=== PATIENT | female | born 1945 | race Caucasian/White ===

== ENCOUNTER → 2017-01-08 | Outpatient (CLI) | payer MEDICARE, BC ==
[2017-01-08 11:09] LABS: Aty Lym Flag Marked; CH 31.9; HCT 44.9 % (34.0-46.0); HDW 2.58; HGB 14.7 gm/dL (11.4-16.0); MCH 31.8 pg (25.0-35.0); MCHC 32.7 g/dL (31.0-37.0); MCV 97.2 fL (80.0-100.0); Mean Platelet Volume 7.2; RBC 4.62 m/uL (3.80-5.40); RDW 14.3 % (11.5-15.5); WBC (Perox) 149.5
[2017-01-08 11:15] LABS: WBC 148.8 k/uL (3.8-10.6)
[2017-01-08 14:30] LABS: Add Differential Manual Differential
[2017-01-08 14:32] LABS: Band Neutrophils % 0.5 %; Manual Review Performed; Nucleated Red Blood Cells 0 /100 WBC (0-0); Total Cells Counted 200
== END ==
LOC: LABWHC1 10:00
PROVIDERS: ATTEND Internal Medicine Hematology & Oncology
DX: C91.10 Chronic lymphocytic leukemia of B-cell type not having achieved remission (principal)
CPT/HCPCS: 36415; 85025

== ENCOUNTER → 2017-07-17 | Outpatient (CLI) | payer MEDICARE, BC ==
[2017-07-17 10:36] LABS: Aty Lym Flag Marked; CH 32.1; HCT 46.4 % (34.0-46.0); HDW 2.71; HGB 15.8 gm/dL (11.4-16.0); MCH 32.4 pg (25.0-35.0); MCV 95.4 fL (80.0-100.0); Mean Platelet Volume 7.8; RBC 4.87 m/uL (3.80-5.40); RDW 15.2 % (11.5-15.5)
[2017-07-17 11:29] LABS: WBC 147.6 k/uL (3.8-10.6)
[2017-07-17 13:02] LABS: Add Differential Manual Differential
[2017-07-17 13:04] LABS: Band Neutrophils % 1 %; Manual Review Performed; Nucleated Red Blood Cells 0 /100 WBC (0-0); Total Cells Counted 100
== END | disposition home or self-care (01) ==
LOC: LABWHC1 09:45
PROVIDERS: ATTEND Internal Medicine Hematology & Oncology
DX: C91.10 Chronic lymphocytic leukemia of B-cell type not having achieved remission (principal)
CPT/HCPCS: 36415; 85025

== ENCOUNTER → 2018-07-16 | Outpatient (CLI) | payer MEDICARE, BC ==
[2018-07-16 10:57] LABS: HCT 47.8 % (34.0-46.0); HGB 14.9 gm/dL (11.4-16.0); MCHC 31.3 g/dL (31.0-37.0); MCV 92.6 fL (80.0-100.0); Mean Platelet Volume 6.8; Platelet Count 241 k/uL (150-450); RBC 5.16 m/uL (3.80-5.40); RDW 15.3 % (11.5-15.5)
[2018-07-16 12:49] LABS: Lymphocytes # (M) 126.72 k/uL (1.0-4.8); Neutrophils % (M) 7 %
[2018-07-16 12:50] LABS: Band Neutrophils % 1 %; Metamyelocytes # (M) 1.44 k/uL (0); Metamyelocytes % 1 %; Monocytes # (M) 5.76 k/uL (0-1.0); Nucleated Red Blood Cells 0 /100 WBC (0-0); Total Cells Counted 200
== END | disposition home or self-care (01) ==
LOC: LABWHC1 09:58
PROVIDERS: ATTEND Internal Medicine Hematology & Oncology
DX: C91.10 Chronic lymphocytic leukemia of B-cell type not having achieved remission (principal)
CPT/HCPCS: 36415; 85025

== ENCOUNTER → 2018-09-16 | Outpatient (CLI) | payer MEDICARE, BC ==
--- NOTE | 2018-09-22 09:42 | MM ---
Reason for exam: screening (asymptomatic). Last mammogram was performed 1 year and 1 month ago. History: Patient is postmenopausal, has history of other cancer at age 68, and is nulliparous. Took hormonal contraceptives for 5 years beginning at age 22. Physical Findings: A clinical breast exam by your physician is recommended on an annual basis and results should be correlated with mammographic findings. MG 3D Screening Mammo W/Cad Bilateral CC and MLO view(s) were taken. Prior study comparison: August 28, 2017, bilateral MG 3d screening mammo w/cad. August 13, 2016, bilateral MG 3d screening mammo w/cad. The breast tissue is extremely dense which could obscure a lesion on mammography. Finding: There are intermediate concern, suspicious coarse heterogeneous, grouped/clustered calcifications in the posterior position of the left breast on MLO view. New finding since August 28, 2017 and August 13, 2016. ASSESSMENT: Incomplete: need additional imaging evaluation, BI-RAD 0 RECOMMENDATION: Special view mammogram of the left breast. [facility] will attempt to contact patient to return for supplemental views.
== END | disposition home or self-care (01) ==
LOC: RADMAMWWP 10:48
PROVIDERS: ATTEND Internal Medicine
DX: Z12.31 Encounter for screening mammogram for malignant neoplasm of breast (principal)
CPT/HCPCS: 77063; 77067

== ENCOUNTER → 2018-10-08 | Outpatient (CLI) | payer MEDICARE, BC ==
--- NOTE | 2018-10-08 11:35 | MM ---
Reason for exam: additional evaluation requested from abnormal screening. Last mammogram was performed 1 month ago. History: Patient is postmenopausal, has history of other cancer at age 68, and is nulliparous. Took hormonal contraceptives for 5 years beginning at age 22. Physical Findings: Nurse did not find any significant physical abnormalities on exam. MG 3D Work Up W/Cad LT LM, CC with magnification, and LM with magnification view(s) were taken of the left breast. Prior study comparison: September 16, 2018, bilateral MG 3d screening mammo w/cad. August 28, 2017, bilateral MG 3d screening mammo w/cad. Finding: There are four punctate, grouped/clustered calcifications in the upper inner quadrant, posterior position of the left breast adjacent to benign coarse calcifications. These results were verbally communicated with the patient and result sheet given to the patient on 10/08/18. ASSESSMENT: Probably benign, BI-RAD 3 RECOMMENDATION: Follow-up diagnostic mammogram of the left breast in 6 months. (include maginification CC and MLO views)
== END | disposition home or self-care (01) ==
LOC: RADMAMWWP 08:49
PROVIDERS: ATTEND Internal Medicine
DX: R92.8 Other abnormal and inconclusive findings on diagnostic imaging of breast (principal)
CPT/HCPCS: 77065; G0279; 77061

== ENCOUNTER → 2019-01-14 | Outpatient (CLI) | payer MEDICARE, BC ==
[2019-01-14 11:21] LABS: HCT 48.1 % (34.0-46.0); HGB 15.2 gm/dL (11.4-16.0); MCH 30.2 pg (25.0-35.0); MCHC 31.6 g/dL (31.0-37.0); MCV 95.7 fL (80.0-100.0); Mean Platelet Volume 6.5; Platelet Count 201 k/uL (150-450); RBC 5.03 m/uL (3.80-5.40); RDW 14.9 % (11.5-15.5)
[2019-01-14 11:26] LABS: WBC 120.1 k/uL (3.8-10.6)
[2019-01-14 12:01] LABS: Lymphocytes # (M) 110.49 k/uL (1.0-4.8); Neutrophils # (M) 8.41 k/uL (1.3-7.7); Neutrophils % (M) 7 %; Nucleated Red Blood Cells 0 /100 WBC (0-0); Total Cells Counted 200
== END | disposition home or self-care (01) ==
LOC: LABWHC1 10:42
PROVIDERS: ATTEND Internal Medicine Hematology & Oncology
DX: C91.10 Chronic lymphocytic leukemia of B-cell type not having achieved remission (principal)
CPT/HCPCS: 36415; 85025

== ENCOUNTER → 2019-04-06 | Outpatient (CLI) | payer MEDICARE, BC ==
--- NOTE | 2019-04-06 11:52 | MM ---
Reason for exam: follow-up at short interval from prior study. Last mammogram was performed 6 months ago. History: Patient is postmenopausal, has history of other cancer at age 68, and is nulliparous. Took hormonal contraceptives for 5 years beginning at age 22. Physical Findings: Nurse did not find any significant physical abnormalities on exam. MG 3D Diag Mammo W/Cad LT CC and MLO view(s) were taken of the left breast. Prior study comparison: October 08, 2018, left breast MG 3d work up w/cad LT. September 16, 2018, bilateral MG 3d screening mammo w/cad. The breast tissue is extremely dense which could obscure a lesion on mammography. Benign appearing calcifications in the left breast. No suspicious abnormality. Palpable nodes correspond to patients known leukemia. These results were verbally communicated with the patient and result sheet given to the patient on 04/06/19. ASSESSMENT: Benign, BI-RAD 2 RECOMMENDATION: Return to routine screening mammogram schedule for both breasts. Back on schedule.
== END | disposition home or self-care (01) ==
LOC: RADMAMWWP 10:50
PROVIDERS: ATTEND Internal Medicine
DX: R92.8 Other abnormal and inconclusive findings on diagnostic imaging of breast (principal)
CPT/HCPCS: 77065; G0279; 77061

== ENCOUNTER → 2019-11-16 | Outpatient (CLI) | payer BC, MEDICARE ==
--- NOTE | 2019-11-17 08:58 | MM ---
Reason for exam: screening (asymptomatic). Last mammogram was performed 7 months ago. History: Patient is postmenopausal, has history of other cancer at age 68, and is nulliparous. Took hormonal contraceptives for 5 years beginning at age 22. Physical Findings: A clinical breast exam by your physician is recommended on an annual basis and results should be correlated with mammographic findings. MG 3D Screening Mammo W/Cad Bilateral CC and MLO view(s) were taken. Prior study comparison: April 06, 2019, left breast MG 3d diag mammo w/cad LT. October 08, 2018, left breast MG 3d work up w/cad LT. The breast tissue is extremely dense which could obscure a lesion on mammography. Right skin lesions. Stable prominent bilateral axillary lymph nodes. ASSESSMENT: Benign, BI-RAD 2 RECOMMENDATION: Routine screening mammogram of both breasts in 1 year.
== END | disposition home or self-care (01) ==
LOC: RADMAMWWP 10:13
PROVIDERS: ATTEND Family Medicine
DX: Z12.31 Encounter for screening mammogram for malignant neoplasm of breast (principal)
CPT/HCPCS: 77063; 77067

== ENCOUNTER → 2020-08-11 | Outpatient (CLI) | payer MEDICARE ==
--- NOTE | 2020-08-11 16:17 | XR ---
EXAMINATION TYPE: XR Hip Complete RT DATE OF EXAM: 08/11/2020 COMPARISON: None HISTORY: Pain, fall TECHNIQUE: 2 view right hip FINDINGS: Femoral head articulates with the acetabulum. No acute fracture or dislocation is evident. IMPRESSION: 1. Normal 2 view right hip
--- NOTE | 2020-08-11 16:18 | XR ---
EXAMINATION TYPE: XR lumbar spine 2 or 3V DATE OF EXAM: 08/11/2020 COMPARISON: 08/07/2017 HISTORY: Back pain, fall 2 weeks prior TECHNIQUE: Three-view lumbar spine FINDINGS: Scoliosis is present with convexity to the left. There 5 lumbar-type vertebral bodies. The pedicles are intact. There is loss of disc height L5-S1, L2-3. There is a severe compression deformit y with greater than 60% loss of vertebral body height. Some mild posterior wall displacement may be p resent from the superior endplate estimated at 0.5 cm. Remaining vertebral body heights are preserved . Spondylosis is present. IMPRESSION: 1. Interval compression deformity from 2017 of the L4 level with some posterior superior vertebral b nisa displacement posteriorly may be present. 2. Degenerative disc changes predominantly L2-3 and L5-S1
== END | disposition home or self-care (01) ==
LOC: RADXRMAIN 11:20
PROVIDERS: ATTEND Nurse Practitioner Family
DX: M51.27 Other intervertebral disc displacement, lumbosacral region (principal); M51.37 Other intervertebral disc degeneration, lumbosacral region
CPT/HCPCS: 72100; 73502

== ENCOUNTER 2020-08-12 09:25 | Inpatient (IN) | payer MEDICARE ==
[2020-08-12] MEDS ORDERED: HYDROmorphone 0.5 MG/0.5 ML SYRINGE IVP STA (09:33)
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
[2020-08-12 10:23] LABS: Partial Thromboplastin Time 24.5 sec (22.0-30.0); Prothrombin Time 10.4 sec (9.0-12.0)
[2020-08-12 10:27] LABS: ALT 13 U/L (4-34); AST 47 U/L (14-36); African American GFR (CKD) >90 (>60 ml/min/1.73 sqM); Albumin 3.5 g/dL (3.5-5.0); Alkaline Phosphatase 163 U/L (38-126); Anion Gap 6 mmol/L; Blood Urea Nitrogen 13 mg/dL (7-17); Calcium 8.5 mg/dL (8.4-10.2); Carbon Dioxide 26 mmol/L (22-30); Chloride 93 mmol/L (98-107); Glucose 112 mg/dL (74-99); Magnesium 1.8 mg/dL (1.6-2.3); Non-African American GFR(CKD) >90 (>60 ml/min/1.73 sqM); Sodium 125 mmol/L (137-145); Total Bilirubin 1.3 mg/dL (0.2-1.3); Total Protein 5.6 g/dL (6.3-8.2)
[2020-08-12 10:34] LABS: HCT 39.3 % (34.0-46.0); HGB 13.3 gm/dL (11.4-16.0); MCH 31.7 pg (25.0-35.0); MCHC 33.8 g/dL (31.0-37.0); MCV 93.8 fL (80.0-100.0); Mean Platelet Volume 7.2; Platelet Count 262 k/uL (150-450); RBC 4.19 m/uL (3.80-5.40); RDW 14.7 % (11.5-15.5)
[2020-08-12 10:44] LABS: WBC 249.5 k/uL (3.8-10.6)
--- NOTE | 2020-08-12 11:00 | CT ---
EXAMINATION TYPE: CT lumbar spine wo con DATE OF EXAM: 08/12/2020 COMPARISON: None HISTORY: continued low back pain post fall [address] DLP: 655.3 mGycm CONTRAST: None TECHNIQUE: CT of the lumbar spine is performed on a spiral scan at 3 mm thick sections. Reconstructed images are performed in the coronal and sagittal planes. FINDINGS: T12-L1: No focal disc herniation or significant disc bulge is evident. No spinal canal stenosis or neural foraminal stenosis is present. L1-L2: No focal disc herniation or significant disc bulge is evident. No spinal canal stenosis or n eural foraminal stenosis is present L2-L3: Broad-based disc bulge is present this is moderate anterior thecal sac compression. No AP spin al canal stenosis is present. There is loss of disc height to this level. Neural foramen are patent. L3-L4: Broad-based disc bulge is present with moderate anterior thecal sac compression. Mild ligament um flavum laxity is present. No spinal canal stenosis is present. Moderate bilateral foraminal narrow ing from disc bulging is present. L4: There is a compression deformity with approximately 60% loss of anterior vertebral body height. T here is posterior wall displacement into the spinal canal estimated at 0.9 cm. AP spinal canal stenos is however is not evident. Ligamentum flavum laxity is noted. L4 has a burst fracture. L4-L5: Minimal disc bulge is present with anterior thecal sac contact. No AP spinal canal stenosis is present. Neural foramen and mild narrowing. L5-S1: There is loss of disc height to this level. Mild residual disc bulge has anterior thecal sac c ontact. No AP spinal canal stenosis is present. There is moderate bilateral foraminal narrowing. Vertebral body alignment is straightened. There is some scoliosis present. Note on the sagittal plane images of the posterior superior wall of the vertebral body of L4 is extending into the spinal canal . IMPRESSION: 1. Acute compression deformity of L4 with 60% loss of vertebral body height. Posterior wall displacem ent of the superior posterior wall into the spinal canal by 0.8 cm. AP spinal canal stenosis is not p resent. 2. Disc bulging present L2-3, L3-4 and mildly at L4-5 with anterior thecal sac flattening. 3. Foraminal narrowing discussed above
[2020-08-12 11:07] LABS: Lymphocytes # (M) 234.53 k/uL (1.0-4.8); Neutrophils # (M) 14.97 k/uL (1.3-7.7); Neutrophils % (M) 6 %; Nucleated Red Blood Cells 0 /100 WBC (0-0); Total Cells Counted 200
[2020-08-12 11:08] LABS: Anisocytosis (M) Present; Poikilocytosis (M) Present
--- NOTE | 2020-08-12 11:35 | CT ---
EXAMINATION TYPE: CT hip RT wo con DATE OF EXAM: 08/12/2020 COMPARISON: Pain HISTORY: continued right hip pain post fall [address] DLP: 296.6 mGycm Automated exposure control for dose reduction was used. FINDINGS: There is a fracture involving the inferior pubic ramus on the right. There is a lucency near the junc tion of the anterior, the acetabulum and superior pubic ramus also suspicious for fracture. Soft tiss ue edema noted. There is arthropathy of the hip. Hypertrophic change of the acetabulum suggest femora l acetabular impingement. IMPRESSION: 1. A fracture involving the inferior pubic ramus with additional minimally displaced fracture through the junction of the anterior, acetabulum and superior pubic ramus.
[2020-08-12] MEDS ORDERED: FUROSEMIDE 10 MG/ML 4 ML VIAL IV SCH (12:30)
[2020-08-12] MEDS ORDERED: SODIUM CHLORIDE 0.9% 1,000 ML IV ONE (12:33)
[2020-08-12] MEDS: SODIUM CHLORIDE 0.9% 1,000 ML IV SCH (12:59)
[2020-08-12] MEDS ORDERED: ALPRAZolam 0.25 MG TAB PO PRN (16:00)
[2020-08-12] MEDS ORDERED: NALOXONE 0.4 MG/ML 1 ML VIAL IV PRN (16:01)
[2020-08-12] MEDS ORDERED: MORPHINE SULFATE 4 MG/ML SYRINGE IV PRN (16:01)
[2020-08-12] MEDS: HYDROmorphone 0.5 MG/0.5 ML SYRINGE IVP PRN ×2 (16:08→21:04)
--- NOTE | 2020-08-12 17:19 | P.CNOR ---
History of Present Illness - HPI Consult date: 08/12/20 Consult reason: fracture, low back pain History of present illness: This is a 74-year-old female with history of CLL who presents status post multiple falls with low back pain right lower extremity weakness and pain. Patient states that approximately 3 weeks ago she had a fall from standing onto her backside which caused her pain in her hip as well as her shoulder. She was getting x-rays for these at the hospital. She continued to have back pain after this fall but did not think much of it. She then had 2 more falls one was at home recently about a day ago. She says since then she has had increasing back pain. She states right lower extremity weakness that has been going on since the original fall but seems to be progressively getting worse. She denies any bowel or bladder incontinence although she states that she has been constipated lately. She denies any numbness in her genitalia or in her rectal region. She denies any fevers chills shortness of breath or chest pain at this time. Review of Systems 14 points review of systems completed and as stated in HPI or otherwise negative. 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 History of Any Multi-Drug Resistant Organisms: None Reported Past Surgical History: Tonsillectomy Additional Past Surgical History / Comment(s): colonoscopy, D&C, bilateral c ataract removals. Past Anesthesia/Blood Transfusion Reactions: No Reported Reaction Additional Past Anesthesia/Blood Transfusion Reaction / Comm: Pt has clausterphobia Past Psychological History: Anxiety, Depression Additional Psychological History / Comment(s): Pt resides alone. She normally is independent but for past 3 weeks after falling, has been using a walker. Smoking Status: Current every day smoker Past Alcohol Use History: Daily Additional Past Alcohol Use History / Comment(s): Pt started smoking in 1966 and is a ppd smoker. Pt drinks normally about 3 beers a day. She states she last drank 2 days ago and has never had any problems when she has not drank. Past Drug Use History: None Reported - Past Family History Father Family Medical History: Dementia Additional Family Medical History / Comment(s): Father of dementia at the age of 76yrs. Mother Family Medical History: Hypertension, Myocardial Infarction (OR) Additional Family Medical History / Comment(s): Mother of a OR at the age of 82 yrs. Medications and Allergies Home Medications Medication Instructions Recorded Confirmed Type ALPRAZolam [Xanax] 0.25 mg PO DAILY PRN 08/12/20 08/12/20 History Calcium/Magnesium/Zinc 1 tab PO DAILY 08/12/20 08/12/20 History [Gyynost-Yrcnbrira-Qeqm Tablet] Cholecalciferol [Vitamin D3 (25 5,000 unit PO DAILY 08/12/20 08/12/20 History Mcg = 1000 Iu)] Fluticasone Nasal [place] [Flonase 2 spr EA NOSTRIL DAILY PRN 08/12/20 08/12/20 History Nasal [place]] Magnesium Oxide 400 mg PO DAILY 08/12/20 08/12/20 History Temazepam 22.5 mg PO HS PRN 08/12/20 08/12/20 History Turmeric Root Extract [Turmeric] 500 mg PO DAILY 08/12/20 08/12/20 History Ubidecarenone [Co Q-10] 100 mg PO DAILY 08/12/20 08/12/20 History Vitamin B Complex 1 cap PO DAILY 08/12/20 08/12/20 History methylPREDNISolone [Medrol Dose See Taper PO DIRECTED 08/12/20 08/12/20 History Pack] Allergies Allergy/AdvReac Type Severity Reaction Status Date / Time No Known Allergies Allergy Verified 08/12/20 11:14 Physical Examination Osteopathic Statement: *. No significant issues noted on an osteopathic structu ral exam other than those noted in the History and Physical/Consult. PHYSICAL EXAMINATION: Vitals: Stable reviewed General: Awake, alert, appropriate for age, in no acute distress. Somewhat malnourished appearance HEENT: No unusual neck masses around region of lateral neck triangle, thyroid, supraclavicular groove. Extremities: Skin warm and dry without no acute lesions, coloration, temperature, skin intact, no tenderness or erythema. Integument: Hairy patches: Absent Dorsal skin dimples: Absent Cafe au lait spots: Absent Surgical incisions: No low back incisions Palpation: Please see Pain drawing on Intake sheet for further detail. (Tenderness = T, Nontender = NT, Swelling = S, Ecchymosis = E) Findings on Midline and paraspinal palpation and percussion: Cervical: NT Thoracic: NT Lumbar: Tennis to palpation over the paraspinal musculature as well as midline of the lumbar spine around the L4 region. No tennis to palpation over the thoracic or cervical spine. Sacral: NT Special findings: None POSTURAL and MUSCULO-SKELETAL EVALUATION: Coronal Balance: Neutral Recumbent testing: Patient can lay flat on back Sagittal Balance: Positive Shoulder Profile: Level Pelvic Girdle: Level Neck ROM: Not tested Lumbar ROM: Not tested Shoulder ROM: Symmetric in abduction, ER/IR Hip ROM: Symmetric in abduction, adduction, ER/IR Knee ROM: Symmetric and intact in Flexion / extension Hands: Normal appearing structure L and R Feet: Normal appearing structure L and R VASCULAR STATUS : LEFT RIGHT Wrist Pulses Intact Intact Pedal Pulses (Dors. pedis and post.tibialis) Intact Intact Color Normal Normal Edema Absent Absent NEUROLOGIC EXAMINATION: Mental Status: Awake and alert, fully oriented, with normal attention, concentration and memory, and fluent, appropriate speech. Cranial Nerves: I: Olfactory not tested. II: Visual acuity normal, no visual field deficit noted with confrontation. III,IV: Normal pupillary reflexes & intact extraocular movements without n ystagmus. V,: Intact symmetrical facial sensation. VII: Intact symmetrical facial motor movement VIII: Hearing intact. IX,X: Intact swallow, & normal voice. XI: Sternocleidomastoid, trapezius function intact. XII: Tongue midline with normal movements. L'hermitte's Sign: Absent Spurling'Sign: Absent Cubital percussion test: Absent Octavia-Tinel sign - Carpal region: Absent Straight Leg Raising: Absent bilaterally Motor Exam (0-5/5, N/T) STRENGTH R L Shoulder Abd (Not part of RACHEL Motor score) [5] [5] Elbow Flexors [5] [5] Elbow Extensor [5] [5] Wrist Dorsiflexors [5] [5] Finger Abductor [5] [5] Steward/Stewardess [5] [5] Hip Flexor (Not part of RACHEL Motor score) [5] [5] Knee Flexor 1 4+ Knee Extensor 1 4+ Ankle dorsiflexor [5] [5] Ankle plantarflexion [5] [5] Extensor hallucis [5] [5] RACHEL Motor score 42/50 48/50 REFLEXES (0-4/2, NT) R L Upper Extremities 3 3 Lower Extremities 2 2 Pathological Reflexes R L Whiting's absent absent Clonus 7 beats 5 beats Negative Babinski Bilaterally Muscle appearance: Symmetric and normal appearing bulk, contour and tone. Rectal Tone: Intact rectal tone, sensation, volitional control Sensory system (0-4, N/T) Test type RU LUZ RL LL Joint-Position [2] [2] [2] [2] Vibration [2] [2] [2] [2] Pain & LT sense [2] [2] [2] [2] Dermatomal Deficit: Right lower extremity L4 5 and L5-S1 decreased sensation Gait and Functional Evaluation: Ambulatory aids: Walker, normally ambulates on her own however recently due to her debility has been unable to ambulate Romberg's test: Intact bilaterally. Hand and finger dexterity intact bilaterally. Disdiadochokinesis examination negative bilaterally. Results Lumbar MRI pending Lumbar CT scans demonstrates an AO type A4, burst fracture of L4 vertebral body. There is retropulsion causing >50% canal stenosis, local kyphosis and deformity due to this. This fracture appears acute on chronic with severe bony erosion of L4 vertebral body. There is also L5-S1 spondylosis which is moderate to severe without evidence of listhesis. There are no bony lesions that can be identified. There are no other fractures or dislocations at this time. - Labs Labs: Abnormal Lab Results - Last 24 Hours (Table) 08/12/20 08/12/20 Range/Units 09:52 09:52 WBC 249.5 H* (3.8-10.6) k/uL Neutrophils # (Manual) 14.97 H (1.3-7.7) k/uL Lymphocytes # (Manual) 234.53 H (1.0-4.8) k/uL Sodium 125 L (137-145) mmol/L Chloride 93 L (98-107) mmol/L Creatinine 0.28 L (0.52-1.04) mg/dL Glucose 112 H (74-99) mg/dL AST 47 H (14-36) U/L Alkaline Phosphatase 163 H (38-126) U/L Total Protein 5.6 L (6.3-8.2) g/dL H & H 08/12/20 Range/Units 09:52 Hgb 13.3 (11.4-16.0) gm/dL Hct 39.3 (34.0-46.0) % Coagulation 08/12/20 Range/Units 09:52 INR 1.0 (<1.2) Result Diagrams: 08/12/20 09:52 08/12/20 09:52 - Diagnostic results Lumbar MRI with/without contrast: pending (As well as thoracic) CT Scan - lumbar: image reviewed Assessment and Plan Assessment: 1. L4 AO A4, N3 burst fracture, unstable, acute on chronic 2. CLL 3. Complex medical patient Plan: 1. Appreciate medical management 2. MRI T and L spine w/and wo for evaluation. Pt is hyperreflexic with clonus which is more likely from T spine. She has no UE symptoms. Will check both. 3. Trend labs. Type and screen. 4. Recommend oncology consult 5. GI/dvt ppx 6. Decadron 6q6 7. Surgical risk discussion 8. Optimization for possible surgical intervention on Saturday08/14/20.
[2020-08-12] MEDS: DEXAMETHASONE SOD PHOSPHATE 4 MG/ML 1 ML VIAL IV SCH (17:31)
[2020-08-12] MEDS ORDERED: LORazepam 2 MG/ML INJ IV PRN ×3 (18:19)
--- NOTE | 2020-08-12 18:21 | P.HPIM ---
History of Present Illness H&P Date: 08/12/20 74-year-old female with PMH of CLL presents the ED for hip pain. Patient states that she fell 3 weeks ago when she tripped over barbed wire. Patient states she went to her chiropractor and was initially feeling better. One week ago, she twisted while ambulating with a cane which caused a great deal of discomfort. Her chiropractor advised her to get x-rays. She underwent x-rays on August 11 at [facility] in the ED which showed compression deformity of L4 level and normal hip x-ray. She was subsequently discharged from the emergency room. Patient reports that she was barely able to stand up after arriving home which prompted her visit today. CT of the lumbar spine showed acute compression deformity of L4 and hip CT showed fracture involving the inferior pubic ramus. In the ED, her vital signs have been stable except for heart rate in the 90s and BP of 151/89. CBC showed WBC count of 249.5. CMP showed sodium of 125, chloride of 93, glucose of 112, AST of 47, alkaline phosphatase of 163. Patient is admitted for inferior pubic ramus fracture and compression deformity of L4 with orthopedic surgery on consult. Review of Systems Pertinent positives and negatives as discussed in HPI, a complete review of systems was performed and all other systems are negative. 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 History of Any Multi-Drug Resistant Organisms: None Reported Past Surgical History: Tonsillectomy Additional Past Surgical History / Comment(s): colonoscopy, D&C, bilateral cataract removals. Past Anesthesia/Blood Transfusion Reactions: No Reported Reaction Additional Past Anesthesia/Blood Transfusion Reaction / Comment(s): Pt has clausterphobia Past Psychological History: Anxiety, Depression Additional Psychological History / Comment(s): Pt resides alone. She normally is independent but for past 3 weeks after falling, has been using a walker. Smoking Status: Current every day smoker Past Alcohol Use History: Daily Additional Past Alcohol Use History / Comment(s): Pt started smoking in 1966 and is a ppd smoker. Pt drinks normally about 3 beers a day. She states she last drank 2 days ago and has never had any problems when she has not drank. Past Drug Use History: None Reported - Past Family History Father Family Medical History: Dementia Additional Family Medical History / Comment(s): Father of dementia at the age of 76yrs. Mother Family Medical History: Hypertension, Myocardial Infarction ([place]) Additional Family Medical History / Comment(s): Mother of a NM at the age of 82 yrs. Medications and Allergies Home Medications Medication Instructions Recorded Confirmed Type ALPRAZolam [Xanax] 0.25 mg PO DAILY PRN 08/12/20 08/12/20 History Calcium/Magnesium/Zinc 1 tab PO DAILY 08/12/20 08/12/20 History [Gpvrhzc-Pjvltndge-Dlnp Tablet] Cholecalciferol [Vitamin D3 (25 5,000 unit PO DAILY 08/12/20 08/12/20 History Mcg = 1000 Iu)] Fluticasone Nasal [place] [Flonase 2 spr EA NOSTRIL DAILY PRN 08/12/20 08/12/20 History Nasal [place]] Magnesium Oxide 400 mg PO DAILY 08/12/20 08/12/20 History Temazepam 22.5 mg PO HS PRN 08/12/20 08/12/20 History Turmeric Root Extract [Turmeric] 500 mg PO DAILY 08/12/20 08/12/20 History Ubidecarenone [Co Q-10] 100 mg PO DAILY 08/12/20 08/12/20 History Vitamin B Complex 1 cap PO DAILY 08/12/20 08/12/20 History methylPREDNISolone [Medrol Dose See Taper PO DIRECTED 08/12/20 08/12/20 His tory Pack] Allergies Allergy/AdvReac Type Severity Reaction Status Date / Time No Known Allergies Allergy Verified 08/12/20 11:14 Physical Exam Vitals: Vital Signs Temp Pulse Pulse Resp BP BP Pulse Ox 08/12/20 14:35 98.4 F 101 H 20 156/66 91 L 08/12/20 12:43 96 18 151/89 95 08/12/20 11:00 97 18 149/74 96 08/12/20 10:20 90 18 138/62 96 08/12/20 09:28 98.3 F 101 H 18 161/85 94 L Intake and Output 08/12/20 08/12/20 08/12/20 06:59 14:59 22:59 Other: Voiding Method Indwelling Catheter Weight 52.617 kg General: [non toxic], [no distress], [appears at stated age] Derm: [warm], [dry] Head: [atraumatic], [normocephalic], [symmetric] Eyes: [EOMI], [no lid lag], [anicteric sclera] Mouth: [no lip lesion], [mucus membranes moist] Cardiovascular: [S1S2 reg], [tachycardic], [positive DP pulse bilateral], Lungs: [CTA bilateral], [no rhonchi, no rales] , [no accessory muscle use] Abdominal: [soft], [ nontender to palpation], [no guarding], [no appreciable organomegaly] Ext: [no gross muscle atrophy], [no edema], [no contractures], [tenderness to palpation over the L4 region midline], [restricted range of motion of the right hip due to pain] Neuro: [ CN II-XI grossly intact], [no focal neuro deficits] Psych: [Alert], [oriented], [appropriate affect] Results CBC & Chem 7: 08/12/20 09:52 08/12/20 09:52 Labs: Abnormal Lab Results - Last 24 Hours (Table) 08/12/20 08/12/20 Range/Units 09:52 09:52 WBC 249.5 H* (3.8-10.6) k/uL Neutrophils # (Manual) 14.97 H (1.3-7.7) k/uL Lymphocytes # (Manual) 234.53 H (1.0-4.8) k/uL Sodium 125 L (137-145) mmol/L Chloride 93 L (98-107) mmol/L Creatinine 0.28 L (0.52-1.04) mg/dL Glucose 112 H (74-99) mg/dL AST 47 H (14-36) U/L Alkaline Phosphatase 163 H (38-126) U/L Total Protein 5.6 L (6.3-8.2) g/dL Thrombosis Risk Factor Assmnt - Choose All That Apply Any of the Below Risk Factors Present?: Yes Each Factor Represents 1 point: Medical pt on bed rest Other Risk Factors: Yes Each Risk Factor Represents 2 Points: Age 61-74 years, Patient confined to bed, Malignancy Other congenital or acquired thrombophilia - If yes, enter type in comment: No Each Risk Factor Represents 5 Points: Multiple trauma (< 1 month) Thrombosis Risk Factor Assessment Total Risk Factor Score: 12 Thrombosis Risk Factor Assessment Level: High Risk Assessment and Plan Assessment: CLL Hypochloremic Hyponatremia Alcohol abuse Hyperglycemia L4 compression fracture and inferior pubic ramus fracture Patient follows Dr. Frey at [facility]. Plans: Consult hematology and oncology. Sodium 125, chloride 93. Likely related to dehydration. Plans: Start normal saline at 75 mL per hour. Repeat BMP tomorrow morning. Patient reports 3 beers and one shot of liquor daily. Plans: CIWA protocol. Ativan as needed for alcohol withdrawal. Plans: Obtain A1c. Plans: Management as per orthopedic surgery. DVT prophylaxis: [Heparin] Discussed with: [Patient] Anticipated discharge: [3-4 days] Anticipated discharge place: [Home versus [facility]] A total of [45] minutes was spent on the care of this complex patient more than 50% of the time was spent in counseling and care coordination. Patient names her brother James decision maker if she can't make decisions for herself. Patient would like to be full code. Plans for surgery on Saturday.
[2020-08-12] MEDS: TEMAZEPAM 7.5 MG CAP PO PRN (21:05)
[2020-08-12] MEDS: NICOTINE 21MG/24HR PATCH TRANSDERM SCH (21:11)
[2020-08-12] MEDS: HEPARIN SODIUM,PORCINE 5,000 UNIT/ML 1 ML VIAL SQ SCH (21:13)
[2020-08-13] MEDS: DEXAMETHASONE SOD PHOSPHATE 4 MG/ML 1 ML VIAL IV SCH ×4 (05:13→17:37)
[2020-08-13] MEDS: SODIUM CHLORIDE 0.9% 1,000 ML IV SCH ×2 (05:14→17:37)
[2020-08-13] MEDS: HYDROmorphone 0.5 MG/0.5 ML SYRINGE IVP PRN ×4 (06:08→19:55)
[2020-08-13 06:31] LABS: HCT 40.7 % (34.0-46.0); HGB 13.7 gm/dL (11.4-16.0); MCH 32.5 pg (25.0-35.0); MCHC 33.7 g/dL (31.0-37.0); MCV 96.5 fL (80.0-100.0); Mean Platelet Volume 6.9; Platelet Count 253 k/uL (150-450); RBC 4.22 m/uL (3.80-5.40); RDW 14.8 % (11.5-15.5)
[2020-08-13 07:11] LABS: Eosinophils # (M) 2.23 k/uL (0-0.7); Monocytes # (M) 2.23 k/uL (0-1.0); Neutrophils # (M) 20.07 k/uL (1.3-7.7); Neutrophils % (M) 9 %; Nucleated Red Blood Cells 0 /100 WBC (0-0); Total Cells Counted 200
[2020-08-13] MEDS: HEPARIN SODIUM,PORCINE 5,000 UNIT/ML 1 ML VIAL SQ SCH ×2 (07:54→19:55)
[2020-08-13] MEDS: NICOTINE 21MG/24HR PATCH TRANSDERM SCH (07:54)
[2020-08-13] MEDS: CHOLECALCIFEROL 1,000 UNIT TAB PO SCH (07:54)
[2020-08-13 09:15] LABS: African American GFR (CKD) 131.6 (60.0-200.0); Anion Gap 7.9 mmol/L (4.00-12.00); BUN/Creat Ratio 36.67 Ratio (12.00-20.00); Calcium 8.5 mg/dL (8.7-10.3); Carbon Dioxide 25.1 mmol/L (21.6-31.8); Non-African American GFR(CKD) 113.6 (60.0-200.0); Potassium 3.6 mmol/L (3.5-5.5)
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
[2020-08-13 12:21] VITALS: BMI 18.1
--- NOTE | 2020-08-13 16:13 | P.PN ---
Subjective Progress Note Date: 08/13/20 Patient was seen and examined. No acute events overnight. Patient reports 7 out of 10 severity pain in her upper back related to scoliosis as per patient, described a spastic. She denies any chest pain, shortness breath or palpitations. No nausea or vomiting. No fever or chills. Objective - Vital Signs Vital signs: Vital Signs Temp 98.6 F 08/13/20 15:00 Pulse 96 08/13/20 15:00 Resp 18 08/13/20 15:00 BP 119/65 08/13/20 15:00 Pulse Ox 90 L 08/13/20 15:00 Intake & Output 08/12/20 08/13/20 08/13/20 18:59 06:59 18:59 Intake Total 600 Output Total 1000 0 Balance -400 0 Weight 52.617 kg 52.617 kg Intake: Intake, IV Titration 300 Amount Sodium Chloride 0.9% 1, 300 000 ml @ 75 mls/hr IV . [id number] [facility] Rx#:[id number] Oral 300 Output: Urine 1000 Stool 0 Other: Voiding Method Indwelling Catheter Indwelling Catheter # Voids 1 - Exam General: [non toxic], [no distress], [appears at stated age] Derm: [warm], [dry] Head: [atraumatic], [normocephalic], [symmetric] Eyes: [EOMI], [no lid lag], [anicteric sclera] Mouth: [no lip lesion], [mucus membranes moist] Cardiovascular: [S1S2 reg], [tachycardic], [positive DP pulse bilateral], Lungs: [CTA bilateral], [no rhonchi, no rales] , [no accessory muscle use] Abdominal: [soft], [ nontender to palpation], [no guarding], [no appreciable organomegaly] Ext: [no gross muscle atrophy], [no edema], [no contractures], [tenderness to palpation over the L4 region midline], [restricted range of motion of the right hip due to pain] Neuro: [no focal neuro deficits] Psych: [Alert], [oriented], [appropriate affect] - Labs CBC & Chem 7: 08/13/20 05:55 08/13/20 05:55 Labs: Abnormal Lab Results - Last 24 Hours (Table) 08/13/20 08/13/20 Range/Units 05:55 05:55 WBC 223.0 H* (3.8-10.6) k/uL Neutrophils # (Manual) 20.07 H (1.3-7.7) k/uL Lymphocytes # (Manual) 200.70 H (1.0-4.8) k/uL Monocytes # (Manual) 2.23 H (0-1.0) k/uL Eosinophils # (Manual) 2.23 H (0-0.7) k/uL Sodium 130 L (135-145) mmol/L Creatinine 0.3 L (0.6-1.5) mg/dL BUN/Creatinine Ratio 36.67 H (12.00-20.00) Ratio Calcium 8.5 L (8.7-10.3) mg/dL Assessment and Plan Assessment: CLL Hypochloremic Hyponatremia Alcohol abuse Hyperglycemia L4 compression fracture and inferior pubic ramus fracture Patient follows Dr. Frey at [facility]. Plans: Consult hematology and oncology. Sodium 125-130, chloride 93-97. Likely related to dehydration. Plans: Continue normal saline at 75 mL per hour. Repeat BMP tomorrow morning. Patient reports 3 beers and one shot of liquor daily. Plans: CIWA protocol. Ativan as needed for alcohol withdrawal. Plans: Obtain A1c. Plans: Management as per orthopedic surgery. Follow MRI L and T spine. DVT prophylaxis: [Heparin] Discussed with: [Patient] Anticipated discharge: [3 days] Anticipated discharge place: [[facility]] A total of [35] minutes was spent on the care of this complex patient more than 50% of the time was spent in counseling and care coordination. Patient names her brother James decision maker if she can't make decisions for herself. Patient would like to be full code. Plans for surgery on Saturday.
--- NOTE | 2020-08-13 16:34 | MR ---
EXAMINATION TYPE: MR veeine/lspine wo/w con DATE OF EXAM: 08/13/2020 COMPARISON: None HISTORY: fracture hyperreflexia CONTRAST: Standard multiplanar, multisequence MRI departmental protocol utilizing 5 mL intravenous Gadavist sofie olinium contrast. Thoracic vertebra have fairly normal spacing and alignment. There is no compression fracture. There i s no thoracic spinal stenosis. Thoracic spinal cord has normal signal pattern. There is no edema. The re is no thoracic paraspinal mass. There are bilateral small pleural effusions. There is compression fracture of L4 vertebra with biconcave deformity. There is 25% loss of height. T here is mild enhancement of the fracture fragments of the L4 compression fracture. Fracture fragments extend posteriorly into the spinal canal and encroach on the neural elements. There is 50% narrowing of the spinal canal. I do not see definite involvement of the pedicles with a bony destructive proce ss. I see no lumbar paraspinal mass. There is some soft tissue edema around the fractured L4 vertebral steven dy. IMPRESSION: No acute abnormality of the thoracic spine. No fracture. There is a burst fracture of the L4 vertebral body. This could be a traumatic fracture. I do not see definite pedicle involvement to suggest metastatic disease. There is moderate spinal stenosis due to posterior fragment extension. Pathologic fracture of L4 cannot be entirely excluded.
[2020-08-13] MEDS: HYDROcodone/APAP 5-325MG 1 EACH TAB PO PRN (17:37)
--- NOTE | 2020-08-13 18:43 | P.PN ---
Progress Note - Text Progress Note Date: 08/13/20 Full consult to follow. Pts chart reviewed. has CLL, on active surveillance by Dr Frey, last seen on 06/2020. Here after multiple falls. Found to have a hip fracture and surgery planned. WBC 250, repeat 230. Baseline 100s. No objections to surgery from hematology stand point. acute rise in WBC reactive due to fall and fracture. Will see pt tomorrow and examine her.
[2020-08-13] MEDS: ALBUTEROL NEBULIZED 2.5 MG/3 ML INHALATION PRN (19:55)
[2020-08-13] MEDS: TEMAZEPAM 7.5 MG CAP PO PRN (21:59)
[2020-08-14] MEDS: HYDROmorphone 0.5 MG/0.5 ML SYRINGE IVP PRN ×4 (00:13→23:34)
[2020-08-14] MEDS: DEXAMETHASONE SOD PHOSPHATE 4 MG/ML 1 ML VIAL IV SCH ×5 (00:13→23:26)
[2020-08-14] MEDS: SODIUM CHLORIDE 0.9% 1,000 ML IV SCH ×2 (03:58→18:06)
[2020-08-14] MEDS ORDERED: SODIUM CHLORIDE 0.9% 100 ML BAG ONE (07:50)
[2020-08-14] MEDS ORDERED: SODIUM CHLORIDE 0.9% IRRIG 1,000 ML BTL IRRIGATION ONE (07:50)
[2020-08-14] MEDS ORDERED: SUCCINYLCHOLINE CHLORIDE 100 MG/5 ML SYR IV ONE (07:50)
[2020-08-14] MEDS ORDERED: PROPOFOL 10 MG/ML 20 ML VIAL IV ONE (07:50)
[2020-08-14] MEDS ORDERED: GLYCOPYRROLATE 0.2 MG/ML 2 ML VIAL ONE (07:50)
[2020-08-14] MEDS ORDERED: DEXAMETHASONE SOD PHOSPHATE 10 MG/ML 1 ML VIAL ONE (07:50)
[2020-08-14] MEDS ORDERED: TRANEXAMIC ACID 1,000 MG/10 ML VIAL ONE (07:50)
[2020-08-14] MEDS ORDERED: fentaNYL (PF) 50 MCG/ML 2 ML AMP ONE (07:50)
[2020-08-14] MEDS ORDERED: PHENYLEPHRINE-0.9% NACL SYG 1 MG/10 ML SYRINGE ONE (07:50)
[2020-08-14] MEDS ORDERED: HEPARIN SODIUM,PORCINE 10,000 UNIT/ML 1 ML VIAL ONE (07:50)
[2020-08-14] MEDS ORDERED: MIDAZOLAM 2 MG/2 ML VIAL ONE (07:50)
[2020-08-14] MEDS: CHOLECALCIFEROL 1,000 UNIT TAB PO SCH (07:59)
[2020-08-14] MEDS: HEPARIN SODIUM,PORCINE 5,000 UNIT/ML 1 ML VIAL SQ SCH ×2 (07:59→20:59)
[2020-08-14] MEDS ORDERED: TRANEXAMIC ACID 1,000 MG in SODIUM CHLORIDE 0.9% 100 ML IVPB ONE ×4 (08:00)
[2020-08-14] MEDS ORDERED: GELATIN SPONGE,ABSORBABLE 1 GM POWDER TOPICAL ONE (08:26)
[2020-08-14] MEDS ORDERED: BUPIVACAINE (PF) 0.5% 30 ML VIAL SQ ONE (08:27)
[2020-08-14] MEDS ORDERED: THROMBIN (BOVINE) 5,000 UNIT VIAL TOPICAL ONE (08:27)
[2020-08-14] MEDS ORDERED: LACTATED RINGERS 1,000 ML IV ONE ×2 (08:33→13:53)
[2020-08-14] MEDS ORDERED: VANCOMYCIN 1,000 MG in SODIUM CHLORIDE 0.9% 250 ML IVPB STA (09:29)
[2020-08-14] MEDS ORDERED: SODIUM CHLORIDE 0.9% 1,000 ML IV ONE ×2 (11:47→14:40)
[2020-08-14] MEDS ORDERED: VANCOMYCIN 1,000 MG VIAL MISCELLANE ONE (13:22)
[2020-08-14] MEDS ORDERED: VANCOMYCIN IV PER PHARMACY 1 EACH MISC MISCELLANE SCH (14:00)
--- NOTE | 2020-08-14 14:13 | P.CONS ---
History of Present Illness - Reason for Consult Consult date: 08/14/20 cll Requesting physician: Aileen Palumbo - Chief Complaint Fall - History of Present Illness Ms. Landa is a very pleasant 74 yo female with history of CLL who is here after having multiple falls. Work up revealed L4 compression fracture as well as hip fracture. Evaluated by orthopedics and surgery recommended. As for her CLL, she follows with Dr. Frey. Last seen in 06/2020. Initially diagnosed in 03/2005, and has been under active surveillance, with q6m visits and CBC's. WBC has ranged 100's, normal hemoglobin and platelets throughout this time. This admission, WBC 200's, lymphocyte predominant. 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 History of Any Multi-Drug Resistant Organisms: None Reported Past Surgical History: Tonsillectomy Additional Past Surgical History / Comment(s): colonoscopy, D&C, bilateral cataract removals. Past Anesthesia/Blood Transfusion Reactions: No Reported Reaction Additional Past Anesthesia/Blood Transfusion Reaction / Comm: Pt has clausterphobia Past Psychological History: Anxiety, Depression Additional Psychological History / Comment(s): Pt resides alone. She normally is independent but for past 3 weeks after falling, has been using a walker. Smoking Status: Current every day smoker Past Alcohol Use History: Daily Additional Past Alcohol Use History / Comment(s): Pt started smoking in 1966 and is a ppd smoker. Pt drinks normally about 3 beers a day. She states she last drank 2 days ago and has never had any problems when she has not drank. Past Drug Use History: None Reported - Past Family History Father Family Medical History: Dementia Additional Family Medical History / Comment(s): Father of dementia at the age of 76yrs. Mother Family Medical History: Hypertension, Myocardial Infarction ([place]) Additional Family Medical History / Comment(s): Mother of a VA at the age of 82 yrs. Medications and Allergies Home Medications Medication Instructions Recorded Confirmed Type ALPRAZolam [Xanax] 0.25 mg PO DAILY PRN 08/12/20 08/12/20 History Calcium/Magnesium/Zinc 1 tab PO DAILY 08/12/20 08/12/20 History [Pabkync-Dkmhywhta-Cxye Tablet] Cholecalciferol [Vitamin D3 (25 5,000 unit PO DAILY 08/12/20 08/12/20 History Mcg = 1000 Iu)] Fluticasone Nasal [place] [Flonase 2 spr EA NOSTRIL DAILY PRN 08/12/20 08/12/20 History Nasal [place]] Magnesium Oxide 400 mg PO DAILY 08/12/20 08/12/20 History Temazepam 22.5 mg PO HS PRN 08/12/20 08/12/20 History Turmeric Root Extract [Turmeric] 500 mg PO DAILY 08/12/20 08/12/20 History Ubidecarenone [Co Q-10] 100 mg PO DAILY 08/12/20 08/12/20 History Vitamin B Complex 1 cap PO DAILY 08/12/20 08/12/20 History methylPREDNISolone [Medrol Dose See Taper PO DIRECTED 08/12/20 08/12/20 His tory Pack] Allergies Allergy/AdvReac Type Severity Reaction Status Date / Time No Known Allergies Allergy Verified 08/12/20 11:14 Physical Exam Vitals: Vital Signs Temp Pulse Pulse Resp BP Pulse Ox 08/14/20 08:00 96 20 08/14/20 07:00 98.5 F 96 20 157/79 90 L 08/14/20 02:05 98.1 F 89 18 124/67 94 L 08/13/20 20:10 96 08/13/20 19:56 96 08/13/20 19:40 98.4 F 95 18 139/69 95 08/13/20 16:00 96 18 08/13/20 15:00 98.6 F 96 18 119/65 90 L Intake and Output 08/13/20 08/14/20 08/14/20 22:59 06:59 14:59 Intake Total 1000 Output Total 1000 1800 0 Balance -1000 -1800 1000 Intake: IV 1000 Output: Urine 1000 1800 Stool 0 0 0 Other: Voiding Method Indwelling Catheter Indwelling Catheter Indwelling Catheter # Voids 1 General:Sedated. Waking up from anesthesia. HEENT: Mucosa moist. Neck: Supple. Lungs: Ventimask on. No respiratory distress. Heart: Regular rate. Abdomen: Nondistended. MSK: No obvious deformities of extremities. Neuro: Sedated. Waking up from anesthesia. Skin: No jaundice. Psych: Sedated. Waking up from anesthesia. Results CBC & Chem 7: 08/13/20 05:55 08/13/20 05:55 Comments: CT spine and MRI spine reviewed. Assessment and Plan Assessment: 1. Acute on chronic leukocytosis 2. CLL 3. L4 traumatic burst fracture 4. Hip fracture 5. Hyponatremia Plan: Ms. Landa is a 74 yo female with history of CLL under active surveillance by Dr. Frey, WBC 100's and normal Hgb and plt's, here for multiple falls. Found to have L4 and hip fracture. WBC this admission 250, improving to 230. Last CBC from 06/2020 with WBC 100's. Acute increased in WBC due to acute stress and exaggerated bone marrow response to stress due to underlying CLL. Hgb and plt normal. No objections to surgery, which was completed earlier today. Pt currently intubated and sedated post op. Continue to monitor CBC and would expect post op decrease in Hgb and plt. Supportive transfusion as needed. She should continue to follow up with Dr. Frey after discharge as previously planned.
--- NOTE | 2020-08-14 14:28 | FL ---
EXAMINATION TYPE: FL guidance operating room, XR lumbar spine 2 or 3V DATE OF EXAM: 08/14/2020 Comparison: 08/11/2020 Clinical History: 74-year-old female LUMBAR FUSION Findings: 5 images during posterior lumbar fusion. FLUOROSCOPY Fluoroscopy time of 28 seconds was used during posterior lumbar fusion. 5 image/s document/s the pro cedure. IMPRESSION: Intraoperative fluoroscopy as above.
[2020-08-14] MEDS ORDERED: HYDROmorphone 0.5 MG/0.5 ML SYRINGE IVP ONE (14:45)
--- NOTE | 2020-08-14 15:01 | P.PN ---
Progress Note - Text Progress Note Date: 08/14/20 Patient was seen and examined in the postoperative care unit for postoperative check. She is still waking up however is able to follow commands her vital signs are stable she is in minimal pain. She is moving all 4 extremities appropriately. She still having some difficulty lifting her right leg off of the bed however she has good plantarflexion and dorsiflexion bilaterally as well as knee flexion and extension. She will be transferred to the intensive care unit once she is stable per the anesthesia staff PACU.
--- NOTE | 2020-08-14 15:16 | P.OP ---
Date of Procedure: 08/14/20 Preoperative Diagnosis: L4 AO A4, N3 burst fracture, closed, unstable. CLL [facility] medical patient Postoperative Diagnosis: L4 AO A4, N3 burst fracture, closed, unstable. CLL complex medical patient Procedure(s) Performed: 1. Open reduction and internal fixation of L4 burst fracture 2. L2-Pelvis posterior stabilized fusion 3. L3-5 decompressive laminectomy 4. L4 partial corpectomy Implants: Tricia [place] screws 6.5 x 50 x2 cross links x2 150 mm 6.0 rods Graft: Bio4 Vesuvius Auto graft Anesthesia: GETA Surgeon: Robby Sena Wellness Guide #1: Mario De La Rosa Estimated Blood Loss (ml): 500 IV fluids (ml): 3,000 Urine output (ml): 500 Pathology: other (L5 posterior lamina, L4 vertebral body) Condition: stable Disposition: PACU Indications for Procedure: This is a 74-year-old female with history of CLL who presents status post multiple falls with low back pain right lower extremity weakness and pain. Patient states that approximately 3 weeks ago she had a fall from standing onto her backside which caused her pain in her hip as well as her shoulder. She was getting x-rays for these at the hospital. She continued to have back pain after this fall but did not think much of it. She then had 2 more falls one was at home recently about a day ago. She says since then she has had increasing back pain. She states right lower extremity weakness that has been going on since the original fall but seems to be progressively getting worse. She denies any bowel or bladder incontinence although she states that she has been constipated lately. She denies any numbness in her genitalia or in her rectal region. She denies any fevers chills shortness of breath or chest pain at this time. Operative Findings: Grossly unstable L4 burst fracture with severe stenosis of L3-5. Posterior element involvement of L5 with tumours like tissue and necrotic fat. Osteoporosis. Description of Procedure: The patient was seen and examined in the preoperative area. All preoperative protocols were followed. Informed consent was obtained risks and benefits of the procedure were discussed at length. Risks including bleeding infection damage to the surrounding tissue and risk of reoperation were discussed with the patient. Risk of anesthesia up to and including was a discussed with the patient. These are outlined in the risk review. They were willing to accept these risks and all of the risks of surgery. The patient was given a weight- based dose of antibiotics in the form of vancomycin. The patient was seen and evaluated by the anesthesia team who deemed them fit for surgery. The site was marked, the patient was willing to proceed with the procedure. The patient was transferred to the operative suite by the Department of anesthesia. They were then drifted off to sleep by the department anesthesia Gen. endotracheal intubation was performed by the department of anesthesia. The patient tolerated this well. Wiseman catheter was in place already. And confirmed to be working appropriately.. Once confirmation of lines and ventilation the patient was transferred to a prone Abdoulaye table very carefully. All bony prominences including wrists, elbows, axilla, chest, hips, and thighs, and feet were padded very well. Special attention was paid to the genitalia and these were padded accordingly. SCDs were placed on bilateral lower extremities and were connected. Arms were well padded and placed on arm boards up and out in the 9090 position and well-padded. Once in position, again we confirmed good ventilation capabilities and that lines were running appropriately. The patient's lumbar spine was then exposed. 1010s were placed outlining the incision site. Standard alcohol was used to clean the incision site and allowed to dry. C-arm was used to biomark the patient and confirm level for incision which was marked with a skin marker. Operative briefing was performed with all teams and everyone in agreement to proceed. The patient was then prepped and draped in a normal sterile fashion. Timeout was then performed and all parties were in agreement with the procedure to be performed. Midline incision was made in the patient's back over the previously marked incision line. This was sharply dissected down to the patient's lumbosacral fascia. Electrocautery was used for hemostasis in this area. Retractors were placed. Spinous processes were identified and lumbosacral fascia was then incised midline along the spinous processes with electrocautery. Subperiosteal dissection was performed down to the lamina and out to the facet joints of L2 through S1. To include the pelvis. Transverse processes were then dissected out and decorticated. Dissection was then taken out to the iliac wings to allow for visualization for entry point for iliac screws. Once dissection was complete and landmarks were confirmed using lateral fluoroscopy the levels were confirmed to be correct. Meticulous hemostasis was performed. The spinous processes clamp for the Cleeng navigation tracking system was then placed on the spinous process of L1. This was secured into place. The wound was then copiously irrigated with normal sterile saline and filled a blue towel was placed over the incision to protect it. Z drape was then placed over the incision sterilely. Ziehm C-arm spent was then done to acquire imaging for navigation. This imaging was acquired and confirmed to be good imaging in good position. The Z drape was then removed sterilely and the wound was investi gated. The tracker was in good position. Gelpi's were then placed deep in the wound to allow for good retraction. Left-sided screws were then placed using a navigated bur followed by a navigated all tapped followed by the screw. A ball feeler was used in between each step to confirm for walled pedicles. All pedicles were confirmed to have good endpoints and all 4 osman still present. Screws were then atraumatically placed starting at L2 on the left. All screws were placed on the left. Screws on the right were then placed starting at L2. No screws were placed in L4 as this was the fractured vertebral body and pedicles. Once screws were placed then iliac screw was placed on the left-hand side using a combination of navigation and live fluoroscopy. An 8 5 x 80 mm screw was placed in this iliac wing. And in good position. The right iliac wing was not able to be accessed due to the patient's pelvic morphology as well as the abutment on the S1 screw. Once screws were placed and they were then tested using neuro monitoring probe and all screws tested above 30 mA. AP and lateral fluoroscopy was then used to confirm good placement of screws. Rods were then selected 6.0 by 150 and 160 mm rods were selected. These were then placed using reduction towers. Set screws were then placed and tightened down. Once the rods were in place the set screws were final tightened to their respective lynne meters. Then decompression ensued a L3 to L5 decompression was done from pedicle to pedicle at each level. This revealed that the L4 pedicles were very unstable as the fracture had propagated through the pedicles of L4. The nerve roots were visualized at L3- 4 and L4 -5 and were completely free. Once decompressive laminectomy had been completed the left L4 pedicle was acce ssed and drilled out to allow access to the L4 vertebral body which was fractured. A partial corpectomy of L4 was done using a combination of bone tamps curettes osteotomes and pituitary. A [place] was placed anterior to the dural sac and this confirmed that there was no further pressure on the dural sac from the anterior retropulse fragment which was impacted anteriorly into the L4 vertebral body space. Biopsies were sent of the removed L4 vertebral body as well as the posterior lamina of L5 which appeared to have some tumorous type material on it. This was michael to necrotic fat however it was slightly thicker and more bulbous. Meticulous hemostasis was then performed using bipolar electrocautery as well as Gelfoam thrombin FloSeal and patties. Once hemostasis had been obtained the dura was inspected there were no dural tears leaks or any further compression. Kerrison rongeurs were used to clean up the superior cranial and caudal edges of the decompression as well as the foramina. The wound was then copiously irrigated with 2 L of normal sterile saline followed by Irricept filed by one more liter of normal sterile saline. Surgicel was then placed over the dura. Bone graft was placed in the posterior lateral gutters where the TPs had been previously decorticated. This is a combination of Bio4, Vesuvius and autograft. 2 cross-links were placed one directly below the L3 pedicle screws and the other directly above the L5 pedicle screws to help with torsional strength. These were locked into place and final tightened. Everything was confirmed final tightened the bone graft was placed a drain was then placed subfascially. 2 g of ankle powder replaced and the wound. The wound was then closed the lumbosacral fascia was closed using #1 Vicryl, subcu was closed using 2-0 PDS as well as a running 0 strata fix. Skin edges were then approximated using a stapler and skin glue was placed over this. The wound was then sterilely dressed with an operative foam 4 x 4's and Tegaderm. The patient was transferred back to her hospital bed atraumatically. Drain continued to hold suction and were in good position. Patient was then awakened and extubated by the department of anesthesia having tolerated the procedure very well with no complications. She was transferred to the postoperative care unit in stable condition.
[2020-08-14 15:36] LABS: Glucose,Whole Blood 144 mg/dL (75-99)
[2020-08-14] MEDS: NICOTINE 21MG/24HR PATCH TRANSDERM SCH (16:01)
[2020-08-14] MEDS ORDERED: ACETAMINOPHEN TAB 500 MG TAB PO PRN (16:26)
[2020-08-14] MEDS: GABAPENTIN 300 MG CAP PO SCH ×2 (17:45→20:59)
--- NOTE | 2020-08-14 17:47 | P.PN ---
Subjective Progress Note Date: 08/14/20 Patient was seen and examined. No acute events overnight. Patient was seen in the ICU after surgery. She underwent open reduction and internal fixation of L4 burst fracture, L2 pelvis posterior stabilized fusion, L3 L5 decompressive laminectomy and L4 partial corpectomy. Patient reports well controlled pain currently. Able to move her bilateral lower extremities. She denies any chest pain, shortness of breath or palpitations. Complains of coughing up mucus. Objective - Vital Signs Vital signs: Vital Signs Temp 97.9 F 08/14/20 16:00 Pulse 67 08/14/20 16:10 Resp 16 08/14/20 16:10 BP 129/79 08/14/20 16:00 Pulse Ox 93 L 08/14/20 16:10 Intake & Output 08/13/20 08/14/20 08/14/20 18:59 06:59 18:59 Intake Total 2075 Output Total 1000 1800 1030 Balance -1000 -1800 1045 Weight 52.617 kg Intake: IV 2075 Sodium Chloride 0.9% 1, 75 000 ml @ 75 mls/hr IV . [id number] [facility] Rx#:[id number] Output: Urine 1000 1800 530 Stool 0 0 0 Estimated Blood Loss 500 Other: Voiding Method Indwelling Catheter Indwelling Catheter Indwelling Catheter # Voids 1 ABP, PAP, CO, CI - Last Documented Arterial Blood Pressure 140/52 - Exam General: [non toxic], [no distress], [appears at stated age] Derm: [warm], [dry] Head: [atraumatic], [normocephalic], [symmetric] Eyes: [EOMI], [no lid lag], [anicteric sclera] Mouth: [no lip lesion], [mucus membranes moist] Cardiovascular: [S1S2 reg], [no murmur], [positive DP pulse bilateral], Lungs: [CTA bilateral], [no rhonchi, no rales] , [no accessory muscle use] Abdominal: [soft], [ nontender to palpation], [no guarding], [no appreciable organomegaly] Ext: [no gross muscle atrophy], [no edema], [no contractures] Neuro: [no focal neuro deficits], sensation intact bilateral lower extremities, able to wiggle toes bilaterally, able to raise lower extremity against gravity bilaterally Psych: [Alert], [oriented], [appropriate affect] - Labs CBC & Chem 7: 08/13/20 05:55 08/13/20 05:55 Labs: Abnormal Lab Results - Last 24 Hours (Table) 08/14/20 Range/Units 15:34 POC Glucose (mg/dL) 144 H (75-99) mg/dL Assessment and Plan Assessment: CLL Hypochloremic Hyponatremia Alcohol abuse Hyperglycemia L4 compression fracture and inferior pubic ramus fracture Patient follows Dr. Frey at [facility]. Plans: Consult hematology and oncology. Sodium 125-130, chloride 93-97. Likely related to dehydration. Plans: Continue normal saline at 75 mL per hour. Repeat BMP tomorrow morning. Patient reports 3 beers and one shot of liquor daily. Plans: CIWA protocol. Ativan as needed for alcohol withdrawal. Plans: Obtain A1c. Plans: Pain management with Tylenol, Gabapentin, Robaxin, and oxycodone as needed. On Vancomycin prophylactic antibiotic. On Dexamethasone. Management as per orthopedic surgery. PT and OT on board. DVT prophylaxis: [Heparin] Discussed with: [Patient] Anticipated discharge: [3 days] Anticipated discharge place: [[facility]] A total of [35] minutes was spent on the care of this complex patient more than 50% of the time was spent in counseling and care coordination. Patient names her brother James decision maker if she can't make decisions for herself. Patient would like to be full code.
[2020-08-14 20:22] LABS: Glucose,Whole Blood 199 mg/dL (75-99)
[2020-08-14] MEDS: methocarbamoL 750 MG TAB PO SCH (20:59)
[2020-08-14] MEDS: INSULIN ASPART (NovoLOG) 100 UNIT/ML VIAL SQ SCH (21:00)
--- NOTE | 2020-08-14 22:45 | CT ---
EXAMINATION TYPE: CT lumbar spine wo con DATE OF EXAM: 08/14/2020 COMPARISON: 08/12/2020 HISTORY: Post op lumbar fusion. CT DLP: 840.1 mGycm Automated exposure control for dose reduction was used. There is bilateral pleural effusions and larger on the right side. There is infiltrate at the lung ba ses. There is posterior fusion surgery from L2 to S1. There is comminuted compression fracture of the L4 v ertebral body. There is 50% loss of height. Left side of L4 vertebra is more severely compressed. Com pression is unchanged compared to recent exam. There are soft tissue air bubbles in the spinal canal at the surgery site. There are skin paulette posteriorly. There is soft tissue air bubbles posteriorly at the fracture site. Detail is limited by metal artifact. Sacroiliac joints are intact. There is a screw fixing the left sacroiliac joint. There is improvement in the lateral subluxation deformity at L3-4 compared to recent exam before the surgery. There are multiple calcified gallstones. IMPRESSION: Comminuted compression fracture of L4 vertebra without progression compared to last exam. Postsurgica l changes. Soft tissue air consistent with recent surgery. There is small amount of fluid posteriorly along the surgery site
[2020-08-14] MEDS: VANCOMYCIN 1,000 MG in SODIUM CHLORIDE 0.9% 250 ML IVPB SCH (23:26)
[2020-08-14 23:45] LABS: Glucose,Whole Blood 150 mg/dL (75-99)
[2020-08-15] MEDS: TEMAZEPAM 7.5 MG CAP PO PRN (02:00)
[2020-08-15] MEDS: HYDROcodone/APAP 5-325MG 1 EACH TAB PO PRN ×5 (02:02→21:50)
[2020-08-15 03:58] LABS: HCT 34.5 % (34.0-46.0); HGB 11.2 gm/dL (11.4-16.0); MCH 31.9 pg (25.0-35.0); MCHC 32.6 g/dL (31.0-37.0); MCV 97.7 fL (80.0-100.0); Mean Platelet Volume 6.9; Platelet Count 234 k/uL (150-450); RBC 3.52 m/uL (3.80-5.40); RDW 14.4 % (11.5-15.5)
[2020-08-15 04:07] LABS: WBC 317.9 k/uL (3.8-10.6)
[2020-08-15 04:21] LABS: African American GFR (CKD) >90 (>60 ml/min/1.73 sqM); Anion Gap 0 mmol/L; Blood Urea Nitrogen 20 mg/dL (7-17); Calcium 8.1 mg/dL (8.4-10.2); Carbon Dioxide 24 mmol/L (22-30); Chloride 102 mmol/L (98-107); Glucose 126 mg/dL (74-99); Non-African American GFR(CKD) >90 (>60 ml/min/1.73 sqM); Potassium 4.7 mmol/L (3.5-5.1); Sodium 126 mmol/L (137-145)
[2020-08-15] MEDS: INSULIN ASPART (NovoLOG) 100 UNIT/ML VIAL SQ SCH ×4 (06:59→21:26)
[2020-08-15 07:00] LABS: Glucose,Whole Blood 119 mg/dL (75-99)
[2020-08-15] MEDS: DEXAMETHASONE SOD PHOSPHATE 4 MG/ML 1 ML VIAL IV SCH ×3 (07:10→17:40)
[2020-08-15] MEDS: PANTOPRAZOLE 40 MG TABLET PO SCH (07:10)
[2020-08-15] MEDS: SODIUM CHLORIDE 0.9% 1,000 ML IV SCH ×2 (07:10→16:07)
[2020-08-15] MEDS: ALBUTEROL NEBULIZED 2.5 MG/3 ML INHALATION PRN (07:20)
[2020-08-15 07:23] LABS: Band Neutrophils % 1 %; Lymphocytes # (M) 292.47 k/uL (1.0-4.8); Metamyelocytes # (M) 3.18 k/uL (0); Metamyelocytes % 1 %; Monocytes # (M) 12.72 k/uL (0-1.0); Neutrophils % (M) 4 %; Nucleated Red Blood Cells 0 /100 WBC (0-0); Total Cells Counted 200
[2020-08-15 07:24] LABS: Poikilocytosis (M) Present
--- NOTE | 2020-08-15 09:09 | P.PN ---
Subjective Progress Note Date: 08/15/20 Principal diagnosis: L 4 burst fracture Patient seen and examined. She is doing very well. She is eating breakfast. She states her pain is much better and her back in her lower extremities. She states she is able to move her legs better. Wiseman is still in place. She denies any bowel incontinence. States she can feel her rectum better as well. Denies fevers chills shortness of breath or chest pain at this time. Medicine note reviewed appreciated management. Objective - Vital Signs Vital signs: Vital Signs Temp 97.3 F L 08/15/20 04:00 Pulse 98 08/15/20 08:00 Resp 14 08/15/20 08:00 BP 126/60 08/15/20 08:00 Pulse Ox 94 L 08/15/20 08:00 Intake & Output 08/14/20 08/15/20 08/15/20 18:59 06:59 18:59 Intake Total 2225 1455 75 Output Total 1110 840 150 Balance 1115 615 -75 Intake: IV 2225 975 75 Sodium Chloride 0.9% 1, 225 975 75 000 ml @ 75 mls/hr IV . [id number] [facility] Rx#:[id number] Oral 480 Output: Drainage 15 60 100 Right Back 15 60 100 Urine 595 780 50 Stool 0 Estimated Blood Loss 500 Other: Voiding Method Indwelling Catheter Indwelling Catheter ABP, PAP, CO, CI - Last Documented Arterial Blood Pressure 114/40 - Exam GEN: AOX3, NAD VSS Inspection: Incision and dressing is clean dry and intact. No erythema or ecchymosis or edema. Palpation: Tenderness to palpation over the incision site no fluctuance. Motor: 4+/5 shoulder abd/EF/EE/WF/intrinsics 4+ to 5/5 DF/PF/EHL/FHL/HF/KE/KF still has some weakness and quads and hip flexion on the right however she is able to fire her quads now much better and is able to slide her heel up the bed and a 2 out of 5 type strength of her quadriceps. Reflexes: 2/4 DTR all upper and LE Sensation intact to light touch in C5-T1 as well as L2-S1 distribution Whiting's: Positive Clonus: Negative Babinski: Negative Incision: CDI Dressing: CDI Drain: [100 mL] - Labs CBC & Chem 7: 08/15/20 03:18 08/15/20 03:18 Labs: Abnormal Lab Results - Last 24 Hours (Table) 08/14/20 08/14/20 08/14/20 Range/Units 15:34 20:21 23:44 WBC (3.8-10.6) k/uL RBC (3.80-5.40) m/uL Hgb (11.4-16.0) gm/dL Neutrophils # (Manual) (1.3-7.7) k/uL Lymphocytes # (Manual) (1.0-4.8) k/uL Monocytes # (Manual) (0-1.0) k/uL Metamyelocytes # (Man) (0) k/uL Sodium (137-145) mmol/L BUN (7-17) mg/dL Creatinine (0.52-1.04) mg/dL Glucose (74-99) mg/dL POC Glucose (mg/dL) 144 H 199 H 150 H (75-99) mg/dL Calcium (8.4-10.2) mg/dL 08/15/20 08/15/20 08/15/20 Range/Units 03:18 03:18 06:59 WBC 317.9 H* (3.8-10.6) k/uL RBC 3.52 L (3.80-5.40) m/uL Hgb 11.2 L (11.4-16.0) gm/dL Neutrophils # (Manual) 15.80 H (1.3-7.7) k/uL Lymphocytes # (Manual) 292.47 H (1.0-4.8) k/uL Monocytes # (Manual) 12.72 H (0-1.0) k/uL Metamyelocytes # (Man) 3.18 H (0) k/uL Sodium 126 L (137-145) mmol/L BUN 20 H (7-17) mg/dL Creatinine 0.30 L (0.52-1.04) mg/dL Glucose 126 H (74-99) mg/dL POC Glucose (mg/dL) 119 H (75-99) mg/dL Calcium 8.1 L (8.4-10.2) mg/dL Assessment and Plan Assessment: 74-year-old female postop day 1 from an L2 to pelvis posterior stabilized fusion with partial L4 corpectomy and L3 to L5 decompression laminectomy for L4 burst fracture, CLL 1. L4 AO A4, N3 burst fracture, unstable, acute on chronic, possibly related to chronic systemic disease 2. CLL 3. Complex medical patient Plan: 1. Appreciate medicine and ICU management. 2. Pain control adequate at this time 3. Aggressive ambulation protocol. OOB with all meals. OOB or in chair 4-5x daily. 4. PT/OT 5. TEDs, SCDs, mechanical ppx. OK for heparin today. Early ambulation is best. 6. GI ppx. 9. Review post op CT 10. Trend labs TF if needed 11. Will follow. OK for floor today per Spine.
[2020-08-15] MEDS: NICOTINE 21MG/24HR PATCH TRANSDERM SCH (09:30)
[2020-08-15] MEDS: CHOLECALCIFEROL 1,000 UNIT TAB PO SCH (09:31)
[2020-08-15] MEDS: methocarbamoL 750 MG TAB PO SCH ×3 (09:32→21:26)
[2020-08-15] MEDS: GABAPENTIN 300 MG CAP PO SCH ×3 (09:32→21:25)
[2020-08-15] MEDS: HEPARIN SODIUM,PORCINE 5,000 UNIT/ML 1 ML VIAL SQ SCH ×2 (09:33→21:26)
[2020-08-15 11:57] LABS: Albumin 2.8 g/dL (3.5-5.0); Bilirubin, Delta 0.2 mg/dL (0.0-0.2); Bilirubin,Unconjugated 0.4 mg/dL (0.0-1.1); Magnesium 1.9 mg/dL (1.6-2.3); Phosphorus 3.9 mg/dL (2.5-4.5); Total Bilirubin 0.6 mg/dL (0.2-1.3); Total Protein 4.8 g/dL (6.3-8.2); Uric Acid 4.9 mg/dL (3.7-7.4)
[2020-08-15 12:06] LABS: Glucose,Whole Blood 132 mg/dL (75-99)
--- NOTE | 2020-08-15 12:12 | CONS ---
CONSULTATION PULMONARY/CRITICAL CARE CONSULTATION: DATE OF SERVICE: 08/15/2020 REASON FOR CONSULTATION: ICU management. This is a 74-year-old female who presented to the emergency department on August 12 at 9:25 a.m. She apparently was complaining of lower back pain and right hip pain. She apparently fell some 3 weeks prior to going to the emergency room and finally showed up for x-rays on 08/12. Because of the pain, she went to the ER to be evaluated. The ER physician was Dr. Weston who diagnosed her as a fracture of multiple pubic rami and compression fracture of L4. The patient apparently had surgery yesterday by Dr. Sena. He is a new spine surgeon with Dr. Monroy and Dr. Zepeda. She apparently had an open reduction internal fixation of an L4 burst fracture, L2 pelvis posterior stabilization fusion, L3-L5 decompressive laminectomy, and L4 partial corpectomy. The patient is back in the ICU in good shape. The surgery was done yesterday. She is postop day #1. Currently, she is on 4 L nasal cannula and saline at 75 mL an hour. She does have a history of CLL and osteoporosis. The patient apparently was seen by Orthopedics today and it was said that the patient could be transferred out to the general medical floor. She was placed here because of a history of tobacco use and concern that she might have issues with her breathing. . HOME MEDICATIONS: Reviewed. She was on Xanax, calcium magnesium zinc tablet, vitamin D3, Flonase nasal spray, magnesium oxide, Restoril, turmeric root extract, coenzyme Q, vitamin B complex, and a Medrol Dosepak. ALLERGIES: Were denied. MEDICAL HISTORY: Includes CLL and chronic back pain and osteoporosis. SURGICAL HISTORY: Includes previous tonsillectomy. SOCIAL HISTORY: Positive for ongoing tobacco use and nicotine addiction. She apparently does drink alcohol daily but does not use any illicit drugs. FAMILY HISTORY: Not known. REVIEW OF SYSTEMS: CONSTITUTIONAL: Negative. NEUROLOGIC: Negative. HEENT: Negative. CARDIOVASCULAR: Negative. PULMONARY: Negative. GI: Negative. : Negative. RHEUMATALGIC: Back pain and right hip pain. IMMUNOLOGIC: Negative. ENDOCRINOLOGIC: Negative. DERMATOLOGIC: Negative. Current vital signs are reviewed, temperature is 97.8, heart rate 90, respiratory rate 20, blood pressure 116/57 mean 76 and 2 L saturations 95%. She appears in no acute distress. HEENT: Examination is grossly unremarkable. Mucous membranes are moist. Nasal O2. Full range of motion. No adenopathy. Neck veins are flat. CARDIOVASCULAR: Examination reveals regular rhythm and rate. S1, S2 normal. Heart rate 88. No murmur. LUNGS: Reveal mostly clear breath sounds. No wheezes, rhonchi, or significant crackles. ABDOMEN: Soft, bowel sounds are not heard. EXTREMITIES: Intact. No cyanosis, clubbing, or edema. SKIN: Without rash. NEUROLOGIC: Examination is brief but nonfocal. O2 turned down from 4 to 2 L, saturations are 95%. LABS: Reviewed. White count 317,000, hemoglobin 11.2, hematocrit 34.5, platelet count 234,000. Sodium 126, potassium 4.7, chloride is 102, CO2 is 24, anion gap is 0. BUN and creatinine were 20 and 0.3, calcium 8.1. Microbiology is negative. X-rays are reviewed. Medications are reviewed. Currently, she is on Tylenol, albuterol as needed for shortness of breath, Xanax, vitamin D3, Decadron, gabapentin, subcu heparin, [place], Dilaudid, insulin, Ativan, Robaxin, morphine p.r.n., Narcan, nicotine patch, oxycodone, Protonix, sodium chloride, Restoril and vancomycin. ASSESSMENT: 1. Postoperative day #1 status post open reduction , internal fixation of L4 burst fracture, L2, pelvis posterior stabilization fusion, L3 through L5 decompressive laminectomy, and L4 partial corpectomy. 2. History of CLL. 3. History of osteoporosis. 4. History of ongoing tobacco use and nicotine addiction. 5. History of daily alcohol use. PLAN: The patient is stable. She can be transferred out to the general medical floor. No additional recommendations are made. Will see only as needed once transferred. I certainly would cut back on some of her pain medications at this time. MMODL / IJN: [id number] /
[2020-08-15] MEDS: VANCOMYCIN 1,000 MG in SODIUM CHLORIDE 0.9% 250 ML IVPB SCH (16:07)
[2020-08-15 17:27] LABS: Glucose,Whole Blood 141 mg/dL (75-99)
--- NOTE | 2020-08-15 17:36 | P.PN ---
Subjective Progress Note Date: 08/15/20 Principal diagnosis: Traumatic Fall, Known CLL, Leukocytosis Objective - Vital Signs Vital signs: Vital Signs Temp 97.8 F 08/15/20 09:00 Pulse 95 08/15/20 10:00 Resp 20 08/15/20 10:00 BP 116/57 08/15/20 10:00 Pulse Ox 95 08/15/20 10:00 Intake & Output 08/14/20 08/15/20 08/15/20 18:59 06:59 18:59 Intake Total 2225 1455 300 Output Total 1110 840 300 Balance 1115 615 0 Intake: IV 2225 975 300 Sodium Chloride 0.9% 1, 225 975 300 000 ml @ 75 mls/hr IV . [id number] [facility] Rx#:[id number] Oral 480 Output: Drainage 15 60 100 Right Back 15 60 100 Urine 595 780 200 Stool 0 0 Estimated Blood Loss 500 Other: Voiding Method Indwelling Catheter Indwelling Catheter Indwelling Catheter ABP, PAP, CO, CI - Last Documented Arterial Blood Pressure 115/44 - Exam General:Lethargic, awake. HEENT: Mucosa moist. Neck: Supple. Lungs: Nasal canula. Increased effort Heart: Regular rate. Abdomen: Nondistended. MSK: No obvious deformities of extremities. Neuro: Sedated. Waking up from anesthesia. Skin: No jaundice. Psych: Sleepy - Labs CBC & Chem 7: 08/15/20 03:18 08/15/20 03:18 Labs: Abnormal Lab Results - Last 24 Hours (Table) 08/14/20 08/14/20 08/14/20 Range/Units 15:34 20:21 23:44 WBC (3.8-10.6) k/uL RBC (3.80-5.40) m/uL Hgb (11.4-16.0) gm/dL Neutrophils # (Manual) (1.3-7.7) k/uL Lymphocytes # (Manual) (1.0-4.8) k/uL Monocytes # (Manual) (0-1.0) k/uL Metamyelocytes # (Man) (0) k/uL Sodium (137-145) mmol/L BUN (7-17) mg/dL Creatinine (0.52-1.04) mg/dL Glucose (74-99) mg/dL POC Glucose (mg/dL) 144 H 199 H 150 H (75-99) mg/dL Calcium (8.4-10.2) mg/dL 08/15/20 08/15/20 08/15/20 Range/Units 03:18 03:18 06:59 WBC 317.9 H* (3.8-10.6) k/uL RBC 3.52 L (3.80-5.40) m/uL Hgb 11.2 L (11.4-16.0) gm/dL Neutrophils # (Manual) 15.80 H (1.3-7.7) k/uL Lymphocytes # (Manual) 292.47 H (1.0-4.8) k/uL Monocytes # (Manual) 12.72 H (0-1.0) k/uL Metamyelocytes # (Man) 3.18 H (0) k/uL Sodium 126 L (137-145) mmol/L BUN 20 H (7-17) mg/dL Creatinine 0.30 L (0.52-1.04) mg/dL Glucose 126 H (74-99) mg/dL POC Glucose (mg/dL) 119 H (75-99) mg/dL Calcium 8.1 L (8.4-10.2) mg/dL Assessment and Plan (1) Fall Current Visit: Yes Status: Acute Code(s): W19.XXXA - UNSPECIFIED FALL, INITIAL ENCOUNTER SNOMED Code(s): 5319558 (2) Leukocytosis Current Visit: Yes Status: Acute Code(s): D72.829 - ELEVATED WHITE BLOOD CELL COUNT, UNSPECIFIED SNOMED Code(s): 955747389 (3) CLL (chronic lymphocytic leukemia) Current Visit: Yes Status: Acute Code(s): C91.10 - CHRONIC LYMPHOCYTIC LEUK OF B-CELL TYPE NOT ACHIEVE REMIS SNOMED Code(s): 18835953 (4) Compression fracture of L4 vertebra Current Visit: Yes Status: Acute Code(s): S32.040A - WEDGE COMPRESSION FRACTURE OF FOURTH LUMBAR VERTEBRA, INIT SNOMED Code(s): 892499721 (5) Fracture of multiple pubic rami Current Visit: Yes Status: Acute Code(s): S32.599A - OTH FRACTURE OF UNSP PUBIS, INIT ENCNTR FOR CLOSED FRACTURE SNOMED Code(s): 297988991 (6) Hyponatremia Current Visit: Yes Status: Acute Code(s): E87.1 - HYPO-OSMOLALITY AND HYPONATREMIA SNOMED Code(s): 08124199 Plan: CT spine and MRI spine reviewed. Assessment and Plan Assessment: 1. Acute on chronic leukocytosis - WBC continue to increase acutely due to acute stress and exaggerated bone marrow response to stress due to underlying CLL. - Continue monitoring daily CBC, and with increased WBC will also monitor LDH, Uric acid, Mag, Phos and LFTs. - Expect initial increase in WBC as above and probable acute mild decline in Hemoglobin and platelet count, supportive transfusions if necessary (hemoglobin less than 7, platelets less than 10K), currently stable and no intervention is indicated. 2. CLL: - Her Baseline WBC 100's and normal Hgb and plt's. Continues on active surveillance under the care of Dr. Frey 3. L4 traumatic burst fracture 4. Hip fracture 5. Hyponatremia Plan: She should continue to follow up with Dr. Frey after discharge as previously planned.
--- NOTE | 2020-08-15 19:28 | P.PN ---
Subjective Progress Note Date: 08/15/20 Patient was seen and examined. No acute events overnight. She underwent open reduction and internal fixation of L4 burst fracture, L2 pelvis posterior stabilized fusion, L3 L5 decompressive laminectomy and L4 partial corpectomy POD 1. Patient reports well controlled pain currently. She denies any chest pain, shortness of breath or palpitations. Objective - Vital Signs Vital signs: Vital Signs Temp 98.0 F 08/15/20 13:30 Pulse 81 08/15/20 13:30 Resp 18 08/15/20 13:30 BP 141/70 08/15/20 13:30 Pulse Ox 94 L 08/15/20 17:00 Intake & Output 08/15/20 08/15/20 08/16/20 06:59 18:59 06:59 Intake Total 1455 375 Output Total 840 300 Balance 615 75 Intake: IV 975 300 Sodium Chloride 0.9% 1, 975 300 000 ml @ 75 mls/hr IV . [id number] [facility] Rx#:[id number] Intake, IV Titration 75 Amount Sodium Chloride 0.9% 1, 75 000 ml @ 75 mls/hr IV . [id number] [facility] Rx#:[id number] Oral 480 Output: Drainage 60 100 Right Back 60 100 Urine 780 200 Stool 0 Other: Voiding Method Indwelling Catheter Indwelling Catheter ABP, PAP, CO, CI - Last Documented Arterial Blood Pressure 115/44 - Exam General: [non toxic], [no distress], [appears at stated age] Derm: [warm], [dry] Head: [atraumatic], [normocephalic], [symmetric] Eyes: [EOMI], [no lid lag], [anicteric sclera] Mouth: [no lip lesion], [mucus membranes moist] Cardiovascular: [S1S2 reg], [no murmur], [positive DP pulse bilateral], Lungs: [CTA bilateral], [no rhonchi, no rales] , [no accessory muscle use] Abdominal: [soft], [ nontender to palpation], [no guarding], [no appreciable organomegaly] Ext: [no gross muscle atrophy], [no edema], [no contractures] Neuro: [no focal neuro deficits], sensation intact bilateral lower extremities, able to wiggle toes bilaterally, able to raise lower extremity against gravity bilaterally Psych: [Alert], [oriented], [appropriate affect] - Labs CBC & Chem 7: 08/15/20 03:18 08/15/20 03:18 Labs: Abnormal Lab Results - Last 24 Hours (Table) 08/14/20 08/14/20 08/15/20 Range/Units 20:21 23:44 03:18 WBC (3.8-10.6) k/uL RBC (3.80-5.40) m/uL Hgb (11.4-16.0) gm/dL Neutrophils # (Manual) (1.3-7.7) k/uL Lymphocytes # (Manual) (1.0-4.8) k/uL Monocytes # (Manual) (0-1.0) k/uL Metamyelocytes # (Man) (0) k/uL Sodium 126 L (137-145) mmol/L BUN 20 H (7-17) mg/dL Creatinine 0.30 L (0.52-1.04) mg/dL Glucose 126 H (74-99) mg/dL POC Glucose (mg/dL) 199 H 150 H (75-99) mg/dL Calcium 8.1 L (8.4-10.2) mg/dL AST (14-36) U/L Alkaline Phosphatase (38-126) U/L Lactate Dehydrogenase (313-618) U/L Total Protein (6.3-8.2) g/dL Albumin (3.5-5.0) g/dL 08/15/20 08/15/20 08/15/20 Range/Units 03:18 03:18 06:59 WBC 317.9 H* (3.8-10.6) k/uL RBC 3.52 L (3.80-5.40) m/uL Hgb 11.2 L (11.4-16.0) gm/dL Neutrophils # (Manual) 15.80 H (1.3-7.7) k/uL Lymphocytes # (Manual) 292.47 H (1.0-4.8) k/uL Monocytes # (Manual) 12.72 H (0-1.0) k/uL Metamyelocytes # (Man) 3.18 H (0) k/uL Sodium (137-145) mmol/L BUN (7-17) mg/dL Creatinine (0.52-1.04) mg/dL Glucose (74-99) mg/dL POC Glucose (mg/dL) 119 H (75-99) mg/dL Calcium (8.4-10.2) mg/dL AST 52 H (14-36) U/L Alkaline Phosphatase 146 H (38-126) U/L Lactate Dehydrogenase 655 H (313-618) U/L Total Protein 4.8 L (6.3-8.2) g/dL Albumin 2.8 L (3.5-5.0) g/dL 08/15/20 08/15/20 Range/Units 12:05 17:23 WBC (3.8-10.6) k/uL RBC (3.80-5.40) m/uL Hgb (11.4-16.0) gm/dL Neutrophils # (Manual) (1.3-7.7) k/uL Lymphocytes # (Manual) (1.0-4.8) k/uL Monocytes # (Manual) (0-1.0) k/uL Metamyelocytes # (Man) (0) k/uL Sodium (137-145) mmol/L BUN (7-17) mg/dL Creatinine (0.52-1.04) mg/dL Glucose (74-99) mg/dL POC Glucose (mg/dL) 132 H 141 H (75-99) mg/dL Calcium (8.4-10.2) mg/dL AST (14-36) U/L Alkaline Phosphatase (38-126) U/L Lactate Dehydrogenase (313-618) U/L Total Protein (6.3-8.2) g/dL Albumin (3.5-5.0) g/dL Assessment and Plan Assessment: CLL Hypochloremic Hyponatremia Alcohol abuse Hyperglycemia L4 compression fracture and inferior pubic ramus fracture Patient follows Dr. Frey at [facility]. Plans: Consult hematology and oncology. Sodium 125-130-126, chloride 93-97-102. Likely related to dehydration. Plans: Continue normal saline at 75 mL per hour. Repeat BMP tomorrow morning. Patient reports 3 beers and one shot of liquor daily. Plans: CIWA protocol. Ativan as needed for alcohol withdrawal. Plans: Obtain A1c. Plans: Pain management with Tylenol, Gabapentin, Robaxin, and oxycodone as needed. On Vancomycin prophylactic antibiotic. On Dexamethasone. Management as per orthopedic surgery. PT and OT on board. [Possible DC to [facility] tomorrow.]
[2020-08-15] MEDS: HYDROmorphone 0.5 MG/0.5 ML SYRINGE IVP PRN (19:55)
[2020-08-15 20:57] LABS: Glucose,Whole Blood 221 mg/dL (75-99)
[2020-08-16] MEDS: DEXAMETHASONE SOD PHOSPHATE 4 MG/ML 1 ML VIAL IV SCH ×2 (00:38→05:48)
[2020-08-16] MEDS: TEMAZEPAM 7.5 MG CAP PO PRN ×2 (00:42→21:19)
[2020-08-16] MEDS: HYDROcodone/APAP 5-325MG 1 EACH TAB PO PRN ×5 (02:43→23:53)
[2020-08-16] MEDS ORDERED: VANCOMYCIN TROUGH DUE 1 EACH MISC MISCELLANE ONE (07:00)
[2020-08-16 07:08] LABS: Glucose,Whole Blood 142 mg/dL (75-99)
[2020-08-16] MEDS: HEPARIN SODIUM,PORCINE 5,000 UNIT/ML 1 ML VIAL SQ SCH ×2 (07:37→21:19)
[2020-08-16] MEDS: INSULIN ASPART (NovoLOG) 100 UNIT/ML VIAL SQ SCH ×4 (07:37→21:10)
[2020-08-16] MEDS: CHOLECALCIFEROL 1,000 UNIT TAB PO SCH (07:38)
[2020-08-16] MEDS: PANTOPRAZOLE 40 MG TABLET PO SCH (07:38)
[2020-08-16] MEDS: methocarbamoL 750 MG TAB PO SCH ×3 (07:38→21:19)
[2020-08-16] MEDS: GABAPENTIN 300 MG CAP PO SCH ×3 (07:38→21:19)
[2020-08-16] MEDS: NICOTINE 21MG/24HR PATCH TRANSDERM SCH (07:38)
[2020-08-16] MEDS: VANCOMYCIN 1,000 MG in SODIUM CHLORIDE 0.9% 250 ML IVPB SCH (08:22)
--- NOTE | 2020-08-16 08:40 | P.PN ---
Subjective Progress Note Date: 08/16/20 Principal diagnosis: L 4 burst fracture Patient was seen and examined this morning in her new room. She is doing very well and she did well last night. She states very minimal pain. She states she was up out of her bed and into the chair yesterday with the help and assistance of the nerve root nursing staff as well as a walker. She states she felt stronger on her legs and she is felt the last few weeks. She denies any new numbness or tingling. She denies any new weakness. No headaches fevers chills or some breath or chest pain at this time. Medicine and oncology notes reviewed, appreciated team approach. Objective - Vital Signs Vital signs: Vital Signs Temp 99.9 F H 08/16/20 05:00 Pulse 100 08/16/20 05:00 Resp 20 08/16/20 05:00 BP 132/69 08/16/20 05:00 Pulse Ox 93 L 08/16/20 05:00 Intake & Output 08/15/20 08/16/20 08/16/20 18:59 06:59 18:59 Intake Total 375 950 Output Total 300 1740 80 Balance 75 -790 -80 Intake: IV 300 Sodium Chloride 0.9% 1, 300 000 ml @ 75 mls/hr IV . [id number] [facility] Rx#:[id number] Intake, IV Titration 75 750 Amount Sodium Chloride 0.9% 1, 75 750 000 ml @ 75 mls/hr IV . [id number] [facility] Rx#:[id number] Oral 200 Output: Drainage 100 40 80 Right Back 100 40 80 Urine 200 1700 Uretheral (Wiseman) 1700 Stool 0 0 Other: Voiding Method Indwelling Catheter Indwelling Catheter # Voids 1 ABP, PAP, CO, CI - Last Documented Arterial Blood Pressure 115/44 - Exam GEN: AOX3, NAD VSS Inspection: Incision and dressing is clean dry and intact. No erythema or ecchymosis or edema. Palpation: Tenderness to palpation over the incision site no fluctuance. No subcu edema or fluid collection Motor: 4+/5 shoulder abd/EF/EE/WF/intrinsics 4+ to 5/5 DF/PF/EHL/FHL/HF/KE/KF still has some weakness and quads and hip flexion on the right however she is able to fire her quads now much better and is able to slide her heel up the bed and a 2 out of 5 type strength of her quadriceps. Reflexes: 2/4 DTR all upper and LE Sensation intact to light touch in C5-T1 as well as L2-S1 distribution Whiting's: Positive Clonus: Negative Babinski: Negative Incision: CDI Dressing: Mild spotting will change when we pulled drain. Drain: [20 cc] - Labs CBC & Chem 7: 08/15/20 03:18 08/15/20 03:18 Labs: Abnormal Lab Results - Last 24 Hours (Table) 08/15/20 08/15/20 08/15/20 Range/Units 03:18 12:05 17:23 POC Glucose (mg/dL) 132 H 141 H (75-99) mg/dL AST 52 H (14-36) U/L Alkaline Phosphatase 146 H (38-126) U/L Lactate Dehydrogenase 655 H (313-618) U/L Total Protein 4.8 L (6.3-8.2) g/dL Albumin 2.8 L (3.5-5.0) g/dL 08/15/20 08/16/20 Range/Units 20:55 07:05 POC Glucose (mg/dL) 221 H 142 H (75-99) mg/dL AST (14-36) U/L Alkaline Phosphatase (38-126) U/L Lactate Dehydrogenase (313-618) U/L Total Protein (6.3-8.2) g/dL Albumin (3.5-5.0) g/dL Assessment and Plan Assessment: 74-year-old female postop day 2 from an L2 to pelvis posterior stabilized fusion with partial L4 corpectomy and L3 to L5 decompression laminectomy for L4 burst fracture, CLL 1. L4 AO A4, N3 burst fracture, unstable, acute on chronic, possibly related to chronic systemic disease 2. CLL 3. Complex medical patient Plan: 1. Appreciate medicine and oncology management 2. Pain control adequate at this time 3. Aggressive ambulation protocol. OOB with all meals. OOB or in chair 4-5x daily. 4. PT/OT 5. TEDs, SCDs, mechanical ppx. OK for heparin today. Early ambulation is best. 6. GI ppx. 9. Postop CT reviewed all hardware in good position fracture reduced. Decompression adequate. 10. Trend labs TF if needed 11. Discussed with patient JOHAN versus home. The patient is planning on going to [facility] when able. I do feel that she is doing very well and that she would be able to go in the next one to 2 days. We will pull her drain tomorrow. I will order TLSO brace for her today. She does not need to wear this at all times but when up and about will help with ambulation.
[2020-08-16 09:49] LABS: HCT 34.3 % (34.0-46.0); HGB 10.9 gm/dL (11.4-16.0); MCHC 31.7 g/dL (31.0-37.0); Mean Platelet Volume 7.4; Platelet Count 241 k/uL (150-450); RDW 14.8 % (11.5-15.5)
[2020-08-16 09:52] LABS: African American GFR (CKD) >90 (>60 ml/min/1.73 sqM); Anion Gap 1 mmol/L; Blood Urea Nitrogen 12 mg/dL (7-17); Calcium 8.1 mg/dL (8.4-10.2); Carbon Dioxide 32 mmol/L (22-30); Chloride 97 mmol/L (98-107); Glucose 116 mg/dL (74-99); Non-African American GFR(CKD) >90 (>60 ml/min/1.73 sqM); Potassium 4.5 mmol/L (3.5-5.1); Sodium 130 mmol/L (137-145); WBC 250.4 k/uL (3.8-10.6)
[2020-08-16] MEDS ORDERED: LACTULOSE 20 GM/30 ML CUP PO ONE (10:03)
--- NOTE | 2020-08-16 10:09 | P.PN ---
Subjective Progress Note Date: 08/16/20 Patient is doing fairly well today. She still complaining of back pain. No acute events overnight. Objective - Vital Signs Vital signs: Vital Signs Temp 99.9 F H 08/16/20 05:00 Pulse 100 08/16/20 05:00 Resp 20 08/16/20 05:00 BP 132/69 08/16/20 05:00 Pulse Ox 93 L 08/16/20 05:00 Intake & Output 08/15/20 08/16/20 08/16/20 18:59 06:59 18:59 Intake Total 375 950 240 Output Total 300 1740 80 Balance 75 -790 160 Intake: IV 300 Sodium Chloride 0.9% 1, 300 000 ml @ 75 mls/hr IV . [id number] [facility] Rx#:[id number] Intake, IV Titration 75 750 Amount Sodium Chloride 0.9% 1, 75 750 000 ml @ 75 mls/hr IV . [id number] [facility] Rx#:[id number] Oral 200 240 Output: Drainage 100 40 80 Right Back 100 40 80 Urine 200 1700 Uretheral (Wiseman) 1700 Stool 0 0 Other: Voiding Method Indwelling Catheter Indwelling Catheter Indwelling Catheter # Voids 1 ABP, PAP, CO, CI - Last Documented Arterial Blood Pressure 115/44 - Exam General: The patient is awake and alert, in no distress Eye: there is normal conjunctiva bilaterally. Neck: The neck is supple, there is no JVD. Cardiovascular: Normal S1-S2, no S3-S4, no murmurs. Respiratory: Lungs clear to auscultation bilaterally Gastrointestinal: Abdomen is soft, nontender Musculoskeletal: There is no pedal edema. Neurological:. Speech is normal. Skin: Skin is warm and dry - Labs CBC & Chem 7: 08/15/20 03:18 08/15/20 03:18 Labs: Abnormal Lab Results - Last 24 Hours (Table) 08/15/20 08/15/20 08/15/20 Range/Units 03:18 12:05 17:23 POC Glucose (mg/dL) 132 H 141 H (75-99) mg/dL AST 52 H (14-36) U/L Alkaline Phosphatase 146 H (38-126) U/L Lactate Dehydrogenase 655 H (313-618) U/L Total Protein 4.8 L (6.3-8.2) g/dL Albumin 2.8 L (3.5-5.0) g/dL 08/15/20 08/16/20 Range/Units 20:55 07:05 POC Glucose (mg/dL) 221 H 142 H (75-99) mg/dL AST (14-36) U/L Alkaline Phosphatase (38-126) U/L Lactate Dehydrogenase (313-618) U/L Total Protein (6.3-8.2) g/dL Albumin (3.5-5.0) g/dL Assessment and Plan Assessment: This is a 74-year-old female with past medical history noted below who presented to the emergency room with worsening hip pain. Patient had a fall at home 3 weeks prior to her presentation. She was evaluated in the ER and currently admitted to the hospital for further management of her medical problems noted below. 1. L4 compression fracture status post partial L4 corpectomy, L3 to L5 decompression laminectomy, and ORIF of L4 burst fracture. The patient's spine surgery recommendation and postoperative care 2. Inferior pubic ramus fracture with a minimally displaced fracture through the junction of the anterior acetabulum and superior pubic ramus 3. CLL: Baseline WBC count around 100 K. Currently in the 300 range. Most likely reactive and secondary to steroid use. Seen and evaluated by hematology. No intervention at this time. Hemoglobin and platelet count stable. 4. Hypochloremic hyponatremia, improving with IV fluids. Hyponatremia is probably chronic secondary to chronic beer drinking. 5. Alcohol abuse: Counseled to quit. CIWA protocol as needed. 6. Hyperglycemia, steroid induced. No underlying diabetes. See 6.0. 7. Physical debility, seen and evaluated by PT/OT Today, I reviewed her medication list and lab work results. I discussed her WBC count with hematology, Dr. Howe, no intervention needed at this time. I advised nursing staff to clarify with orthopedic if it's okay to discontinue IV dexamethasone and IV vancomycin I ordered to discontinue Wiseman catheter and check postvoid residual to ensure patient isn't taking her bladder Repeat Work in the morning Placement to [facility] possibly tomorrow
[2020-08-16 10:57] LABS: Lymphocytes # (M) 245.39 k/uL (1.0-4.8); Neutrophils # (M) 5.01 k/uL (1.3-7.7); Neutrophils % (M) 2 %; Nucleated Red Blood Cells 0 /100 WBC (0-0); Total Cells Counted 100
[2020-08-16 11:26] LABS: Glucose,Whole Blood 128 mg/dL (75-99)
[2020-08-16] MEDS ORDERED: DEXAMETHASONE SOD PHOSPHATE 4 MG/ML 1 ML VIAL IV PRN (11:54)
[2020-08-16] MEDS: polyethylene glycoL 3350 17 GM POWD.PACK PO SCH (12:24)
[2020-08-16] MEDS: SODIUM CHLORIDE 0.9% 1,000 ML IV SCH ×2 (12:24→21:27)
--- NOTE | 2020-08-16 13:32 | P.PN ---
Subjective Progress Note Date: 08/16/20 Principal diagnosis: ICU management, status post open reduction internal fixation of L4 burst fracture On 08/16/2020 patient seen in follow-up on the general medical surgical floor, she is resting comfortably in bed, appears to be in no acute distress, she is oriented 3, he is on 2 L of oxygen and pulse ox 95%, hemodynamically stable, she had one isolated low-grade fever this morning with a temp of 99.9F, afebrile right now. Breathing comfortably, she is only showing 750 on her incentive spirometer, she is V encouragement with incentive spirometer, she has had a lot of visitors and a lot of phone calls. She's had no acute issues overnight, today's lab 7 reviewed, showing blood cell count of 250.4, hemoglobin of 10.9, sodium is 1:30, potassium 4.5, chloride is 97, CO2 is 32, BUN is 12 and creatinine 0.31. Objective - Vital Signs Vital signs: Vital Signs Temp 97.9 F 08/16/20 11:45 Pulse 96 08/16/20 11:45 Resp 16 08/16/20 11:45 BP 148/79 08/16/20 11:45 Pulse Ox 95 08/16/20 11:45 Intake & Output 08/15/20 08/16/20 08/16/20 18:59 06:59 18:59 Intake Total 375 950 240 Output Total 300 1740 80 Balance 75 -790 160 Weight 52.617 kg Intake: IV 300 Sodium Chloride 0.9% 1, 300 000 ml @ 75 mls/hr IV . [id number] [facility] Rx#:[id number] Intake, IV Titration 75 750 Amount Sodium Chloride 0.9% 1, 75 750 000 ml @ 75 mls/hr IV . [id number] [facility] Rx#:[id number] Oral 200 240 Output: Drainage 100 40 80 Right Back 100 40 80 Urine 200 1700 Uretheral (Wiseman) 1700 Stool 0 0 Other: Voiding Method Indwelling Catheter Indwelling Catheter Indwelling Catheter # Voids 1 ABP, PAP, CO, CI - Last Documented Arterial Blood Pressure 115/44 - Exam GENERAL EXAM: Alert, very pleasant, 74-year-old white female, on 2 L of oxygen pulse ox 98% comfortable in no apparent distress. HEAD: Normocephalic/atraumatic. EYES: Normal reaction of pupils, equal size. Conjunctiva pink, sclera white. NOSE: Clear with pink turbinates. THROAT: No erythema or exudates. NECK: No masses, no JVD, no thyroid enlargement, no adenopathy. CHEST: No chest wall deformity. Symmetrical expansion. LUNGS: Equal air entry with no crackles, wheeze, rhonchi or dullness. CVS: Regular rate and rhythm, normal S1 and S2, no gallops, no murmurs, no rubs ABDOMEN: Soft, nontender. No hepatosplenomegaly, normal bowel sounds, no guarding or rigidity. EXTREMITIES: No clubbing, no edema, no cyanosis, 2+ pulses and upper and lower extremities. MUSCULOSKELETAL: Muscle strength and tone normal. SPINE: No scoliosis or deformity SKIN: No rashes CENTRAL NERVOUS SYSTEM: Alert and oriented -3. No focal deficits, tone is normal in all 4 extremities. PSYCHIATRIC: Alert and oriented -3. Appropriate affect. Intact judgment and insight. - Labs CBC & Chem 7: 08/16/20 07:24 08/16/20 07:24 Labs: Abnormal Lab Results - Last 24 Hours (Table) 08/15/20 08/15/20 08/15/20 Range/Units 03:18 17:23 20:55 WBC (3.8-10.6) k/uL RBC (3.80-5.40) m/uL Hgb (11.4-16.0) gm/dL Lymphocytes # (Manual) (1.0-4.8) k/uL Sodium (137-145) mmol/L Chloride (98-107) mmol/L Carbon Dioxide (22-30) mmol/L Creatinine (0.52-1.04) mg/dL Glucose (74-99) mg/dL POC Glucose (mg/dL) 141 H 221 H (75-99) mg/dL Calcium (8.4-10.2) mg/dL IgG 302.0 L (700.0-1600.0) mg/dL 08/16/20 08/16/20 08/16/20 Range/Units 07:05 07:24 07:24 WBC 250.4 H* (3.8-10.6) k/uL RBC 3.50 L (3.80-5.40) m/uL Hgb 10.9 L (11.4-16.0) gm/dL Lymphocytes # (Manual) 245.39 H (1.0-4.8) k/uL Sodium 130 L (137-145) mmol/L Chloride 97 L (98-107) mmol/L Carbon Dioxide 32 H (22-30) mmol/L Creatinine 0.31 L (0.52-1.04) mg/dL Glucose 116 H (74-99) mg/dL POC Glucose (mg/dL) 142 H (75-99) mg/dL Calcium 8.1 L (8.4-10.2) mg/dL IgG (700.0-1600.0) mg/dL 08/16/20 Range/Units 11:24 WBC (3.8-10.6) k/uL RBC (3.80-5.40) m/uL Hgb (11.4-16.0) gm/dL Lymphocytes # (Manual) (1.0-4.8) k/uL Sodium (137-145) mmol/L Chloride (98-107) mmol/L Carbon Dioxide (22-30) mmol/L Creatinine (0.52-1.04) mg/dL Glucose (74-99) mg/dL POC Glucose (mg/dL) 128 H (75-99) mg/dL Calcium (8.4-10.2) mg/dL IgG (700.0-1600.0) mg/dL Assessment and Plan Plan: Assessment: #1. L4 A0 084, and 3 burst fracture, unstable, acute on chronic, status post open reduction, internal fixation of L4 burst fracture, L2, pelvis posterior stabilization fusion, L3 through L5 decompressive laminectomy, and L4 partial corpectomy #2. History of CLL #3. History of osteoporosis #4. History of ongoing tobacco use and nicotine addiction #5. History of daily alcohol use Plan: Patient is doing well, continue encouraging deep breathing and coughing, incentive spirometry use, pain medications per attending and orthopedic surgery, encourage ambulation, no acute issues overnight. Continue nebulized bronchodilators. Wean FiO2 I performed a history & physical examination of the patient and discussed their management with my nurse practitioner, Rosalee Gary. I reviewed the nurse practitioner's note and agree with the documented findings and plan of care. Lung sounds are positive for clear breath sounds. The findings and the impression was discussed with the patient. I attest to the documentation by the nurse practitioner. Time with Patient: Less than 30
[2020-08-16 16:59] LABS: Glucose,Whole Blood 98 mg/dL (75-99)
[2020-08-16] MEDS ORDERED: VANCOMYCIN 1,000 MG in SODIUM CHLORIDE 0.9% 250 ML IVPB SCH (18:00)
[2020-08-16 20:11] LABS: Glucose,Whole Blood 117 mg/dL (75-99)
[2020-08-17 05:00] LABS: HCT 29.9 % (34.0-46.0); HGB 9.9 gm/dL (11.4-16.0); MCH 32.3 pg (25.0-35.0); MCHC 32.9 g/dL (31.0-37.0); MCV 97.9 fL (80.0-100.0); Platelet Count 197 k/uL (150-450); RBC 3.06 m/uL (3.80-5.40); RDW 14.1 % (11.5-15.5)
[2020-08-17 05:06] LABS: WBC 183.6 k/uL (3.8-10.6)
[2020-08-17 05:30] LABS: Lymphocytes # (M) 179.93 k/uL (1.0-4.8); Monocytes # (M) 1.84 k/uL (0-1.0); Neutrophils # (M) 3.67 k/uL (1.3-7.7); Neutrophils % (M) 2 %; Nucleated Red Blood Cells 0 /100 WBC (0-0); Total Cells Counted 200
[2020-08-17] MEDS: HYDROcodone/APAP 5-325MG 1 EACH TAB PO PRN ×3 (06:26→15:11)
[2020-08-17 07:14] LABS: Glucose,Whole Blood 100 mg/dL (75-99)
[2020-08-17] MEDS: CHOLECALCIFEROL 1,000 UNIT TAB PO SCH (07:49)
[2020-08-17] MEDS: HEPARIN SODIUM,PORCINE 5,000 UNIT/ML 1 ML VIAL SQ SCH (07:50)
[2020-08-17] MEDS: PANTOPRAZOLE 40 MG TABLET PO SCH (07:50)
[2020-08-17] MEDS: GABAPENTIN 300 MG CAP PO SCH ×2 (07:50→15:11)
[2020-08-17] MEDS: methocarbamoL 750 MG TAB PO SCH ×2 (07:50→18:05)
[2020-08-17] MEDS: NICOTINE 21MG/24HR PATCH TRANSDERM SCH (07:51)
[2020-08-17] MEDS: polyethylene glycoL 3350 17 GM POWD.PACK PO SCH (07:51)
[2020-08-17] MEDS: INSULIN ASPART (NovoLOG) 100 UNIT/ML VIAL SQ SCH ×3 (07:52→18:05)
--- NOTE | 2020-08-17 08:27 | P.PN ---
Subjective Progress Note Date: 08/17/20 Principal diagnosis: L 4 burst fracture Patient was seen and examined this morning. She is a little bit down today as she feels less energetic and a little bit more painful. I discussed with her that this is likely due to is weaning her off of some of her steroids in its very normal to have more pain and feel like this on the third day postoperatively. She is otherwise been up to her chair several times she has been up with a walker. She denies any fevers chills shortness of breath or chest pain at this time. She does state she is coughing a little bit more and some more phlegm is coming up but I encouraged deep breathing and coughing as well as incentive spirometry. She denies any new numbness or tingling. She denies any new weakness. Medicine and oncology notes reviewed, appreciated team approach. Objective - Vital Signs Vital signs: Vital Signs Temp 98.3 F 08/17/20 05:00 Pulse 106 H 08/17/20 05:00 Resp 20 08/17/20 05:00 BP 126/68 08/17/20 05:00 Pulse Ox 93 L 08/17/20 05:00 Intake & Output 08/16/20 08/17/20 08/17/20 18:59 06:59 18:59 Intake Total 1330 825 Output Total 1327 2035 Balance 3 -1210 Weight 52.617 kg Intake: IV 600 600 Sodium Chloride 0.9% 1, 600 600 000 ml @ 75 mls/hr IV . [id number] [facility] Rx#:[id number] Intake, IV Titration 250 225 Amount Sodium Chloride 0.9% 1, 225 000 ml @ 75 mls/hr IV . [id number] [facility] Rx#:[id number] Vancomycin 1,000 mg In 250 Sodium Chloride 0.9% 250 ml @ 125 mls/hr IVPB Q10H [facility] Rx#:[id number] Oral 480 Output: Drainage 290 135 Right Back 290 135 Urine 1037 1900 Straight 925 Uretheral ([place]) 137 975 Other: Voiding Method Indwelling Catheter ABP, PAP, CO, CI - Last Documented Arterial Blood Pressure 115/44 - Exam GEN: AOX3, NAD VSS Inspection: Incision and dressing is clean dry and intact. No erythema or ecchymosis or edema. Palpation: Tenderness to palpation over the incision site no fluctuance. No subcu edema or fluid collection Motor: 4+/5 shoulder abd/EF/EE/WF/intrinsics 4+ to 5/5 DF/PF/EHL/FHL/HF/KE/KF still has some weakness and quads and hip flexion on the right however she is able to fire her quads now much better and is able to slide her heel up the bed and a 2 out of 5 type strength of her quadriceps. Reflexes: 2/4 DTR all upper and LE Sensation intact to light touch in C5-T1 as well as L2-S1 distribution Whiting's: Positive Clonus: Negative Babinski: Negative Incision: CDI Dressing: Spotting, changed today Drain: Minimal drainage pulled today - Labs CBC & Chem 7: 08/17/20 04:33 08/16/20 07:24 Labs: Abnormal Lab Results - Last 24 Hours (Table) 08/15/20 08/16/20 08/16/20 Range/Units 03:18 07:24 07:24 WBC 250.4 H* (3.8-10.6) k/uL RBC 3.50 L (3.80-5.40) m/uL Hgb 10.9 L (11.4-16.0) gm/dL Hct (34.0-46.0) % Lymphocytes # (Manual) 245.39 H (1.0-4.8) k/uL Monocytes # (Manual) (0-1.0) k/uL Sodium 130 L (137-145) mmol/L Chloride 97 L (98-107) mmol/L Carbon Dioxide 32 H (22-30) mmol/L Creatinine 0.31 L (0.52-1.04) mg/dL Glucose 116 H (74-99) mg/dL POC Glucose (mg/dL) (75-99) mg/dL Calcium 8.1 L (8.4-10.2) mg/dL IgG 302.0 L (700.0-1600.0) mg/dL 08/16/20 08/16/20 08/17/20 Range/Units 11:24 20:10 04:33 WBC 183.6 H* (3.8-10.6) k/uL RBC 3.06 L (3.80-5.40) m/uL Hgb 9.9 L (11.4-16.0) gm/dL Hct 29.9 L (34.0-46.0) % Lymphocytes # (Manual) 179.93 H (1.0-4.8) k/uL Monocytes # (Manual) 1.84 H (0-1.0) k/uL Sodium (137-145) mmol/L Chloride (98-107) mmol/L Carbon Dioxide (22-30) mmol/L Creatinine (0.52-1.04) mg/dL Glucose (74-99) mg/dL POC Glucose (mg/dL) 128 H 117 H (75-99) mg/dL Calcium (8.4-10.2) mg/dL IgG (700.0-1600.0) mg/dL 08/17/20 Range/Units 07:02 WBC (3.8-10.6) k/uL RBC (3.80-5.40) m/uL Hgb (11.4-16.0) gm/dL Hct (34.0-46.0) % Lymphocytes # (Manual) (1.0-4.8) k/uL Monocytes # (Manual) (0-1.0) k/uL Sodium (137-145) mmol/L Chloride (98-107) mmol/L Carbon Dioxide (22-30) mmol/L Creatinine (0.52-1.04) mg/dL Glucose (74-99) mg/dL POC Glucose (mg/dL) 100 H (75-99) mg/dL Calcium (8.4-10.2) mg/dL IgG (700.0-1600.0) mg/dL Assessment and Plan Assessment: 74-year-old female postop day 3 from an L2 to pelvis posterior stabilized fusion with partial L4 corpectomy and L3 to L5 decompression laminectomy for L4 burst fracture, CLL 1. L4 AO A4, N3 burst fracture, unstable, acute on chronic, possibly related to chronic systemic disease 2. CLL 3. Complex medical patient Plan: 1. Appreciate medicine and oncology management 2. Pain control adequate at this time 3. Aggressive ambulation protocol. OOB with all meals. OOB or in chair 4-5x daily. 4. PT/OT, no need for TLSO to get up however if going to walk a large distance would recommend using TLSO. 5. TEDs, SCDs, mechanical ppx. OK for heparin today. Early ambulation is best. 6. GI ppx. 9. Postop CT reviewed all hardware in good position fracture reduced. Decompression adequate. 10. Trend labs TF if needed 11. Discussed with patient JOHAN versus home. The patient states that she got ejected from [place] however I discussed with her not to be discouraged him we will find her another placed ago. 12. Dressing was changed today incision is clean and dry. 13. Ice to back every 2 hours.
[2020-08-17 09:28] LABS: African American GFR (CKD) 150.4 (60.0-200.0); Anion Gap 4.6 mmol/L (4.00-12.00); Calcium 7.7 mg/dL (8.7-10.3); Carbon Dioxide 31.4 mmol/L (21.6-31.8); Non-African American GFR(CKD) 129.8 (60.0-200.0); Potassium 3.7 mmol/L (3.5-5.5)
[2020-08-17 11:35] LABS: Glucose,Whole Blood 140 mg/dL (75-99)
[2020-08-17 11:50] VITALS: BP 132/72; TEMP 98.8
--- NOTE | 2020-08-17 12:38 | P.PN ---
Subjective Progress Note Date: 08/17/20 Principal diagnosis: ICU management, status post open reduction internal fixation of L4 burst fracture On 08/16/2020 patient seen in follow-up on the general medical surgical floor, she is resting comfortably in bed, appears to be in no acute distress, she is oriented 3, he is on 2 L of oxygen and pulse ox 95%, hemodynamically stable, she had one isolated low-grade fever this morning with a temp of 99.9F, afebrile right now. Breathing comfortably, she is only showing 750 on her incentive spirometer, she is V encouragement with incentive spirometer, she has had a lot of visitors and a lot of phone calls. She's had no acute issues overnight, today's lab 7 reviewed, showing blood cell count of 250.4, hemoglobin of 10.9, sodium is 1:30, potassium 4.5, chloride is 97, CO2 is 32, BUN is 12 and creatinine 0.31. On 08/17/2020 patient seen in follow-up on medical surgical floor, she is resting comfortably in bed, she is on 2 L of oxygen, denies any acute distress, her pulse ox of 91-93%, hemodynamically stable, she's been afebrile, she is working on incentive spirometer, however only achieving 500 mL, lung sounds reveal a few scattered rhonchi, patient does have a congestive cough, which is nonproductive, and denies any hemoptysis, denies any chest pain. Patient is working with therapy, she was able to step in place with assistance. She's been wearing her TLCO bruits. Tolerated activity well Objective - Vital Signs Vital signs: Vital Signs Temp 98.8 F 08/17/20 11:50 Pulse 103 H 08/17/20 11:50 Resp 17 08/17/20 11:50 BP 132/72 08/17/20 11:50 Pulse Ox 91 L 08/17/20 11:50 Intake & Output 08/16/20 08/17/20 08/17/20 18:59 06:59 18:59 Intake Total 1330 825 Output Total 1327 2035 Balance 3 -1210 Weight 52.617 kg Intake: IV 600 600 Sodium Chloride 0.9% 1, 600 600 000 ml @ 75 mls/hr IV . [id number] [facility] Rx#:[id number] Intake, IV Titration 250 225 Amount Sodium Chloride 0.9% 1, 225 000 ml @ 75 mls/hr IV . [id number] [facility] Rx#:[id number] Vancomycin 1,000 mg In 250 Sodium Chloride 0.9% 250 ml @ 125 mls/hr IVPB Q10H [facility] Rx#:[id number] Oral 480 Output: Drainage 290 135 Right Back 290 135 Urine 1037 1900 Straight 925 Uretheral ([place]) 137 975 Other: Voiding Method Indwelling Catheter ABP, PAP, CO, CI - Last Documented Arterial Blood Pressure 115/44 - Exam GENERAL EXAM: Alert, very pleasant, 74-year-old white female, on 2 L of oxygen pulse ox 91% comfortable in no apparent distress. HEAD: Normocephalic/atraumatic. EYES: Normal reaction of pupils, equal size. Conjunctiva pink, sclera white. NOSE: Clear with pink turbinates. THROAT: No erythema or exudates. NECK: No masses, no JVD, no thyroid enlargement, no adenopathy. CHEST: No chest wall deformity. Symmetrical expansion. LUNGS: Equal air entry with no crackles, wheeze, rhonchi or dullness. CVS: Regular rate and rhythm, normal S1 and S2, no gallops, no murmurs, no rubs ABDOMEN: Soft, nontender. No hepatosplenomegaly, normal bowel sounds, no guarding or rigidity. EXTREMITIES: No clubbing, no edema, no cyanosis, 2+ pulses and upper and lower extremities. MUSCULOSKELETAL: Muscle strength and tone normal. SPINE: No scoliosis or deformity SKIN: No rashes CENTRAL NERVOUS SYSTEM: Alert and oriented -3. No focal deficits, tone is normal in all 4 extremities. PSYCHIATRIC: Alert and oriented -3. Appropriate affect. Intact judgment and insight. - Labs CBC & Chem 7: 08/17/20 04:33 08/17/20 04:33 Labs: Abnormal Lab Results - Last 24 Hours (Table) 08/15/20 08/16/20 08/17/20 Range/Units 03:18 20:10 04:33 WBC 183.6 H* (3.8-10.6) k/uL RBC 3.06 L (3.80-5.40) m/uL Hgb 9.9 L (11.4-16.0) gm/dL Hct 29.9 L (34.0-46.0) % Lymphocytes # (Manual) 179.93 H (1.0-4.8) k/uL Monocytes # (Manual) 1.84 H (0-1.0) k/uL Sodium (135-145) mmol/L Creatinine (0.6-1.5) mg/dL BUN/Creatinine Ratio (12.00-20.00) Ratio POC Glucose (mg/dL) 117 H (75-99) mg/dL Calcium (8.7-10.3) mg/dL IgG 302.0 L (700.0-1600.0) mg/dL 08/17/20 08/17/20 08/17/20 Range/Units 04:33 07:02 11:15 WBC (3.8-10.6) k/uL RBC (3.80-5.40) m/uL Hgb (11.4-16.0) gm/dL Hct (34.0-46.0) % Lymphocytes # (Manual) (1.0-4.8) k/uL Monocytes # (Manual) (0-1.0) k/uL Sodium 134 L (135-145) mmol/L Creatinine 0.2 L (0.6-1.5) mg/dL BUN/Creatinine Ratio 45.00 H (12.00-20.00) Ratio POC Glucose (mg/dL) 100 H 140 H (75-99) mg/dL Calcium 7.7 L (8.7-10.3) mg/dL IgG (700.0-1600.0) mg/dL Assessment and Plan Plan: Assessment: #1. L4 burst fracture, unstable, acute on chronic, status post open reduction, internal fixation of L4 burst fracture, L2, pelvis posterior stabilization f usion, L3 through L5 decompressive laminectomy, and L4 partial corpectomy #2. History of CLL #3. History of osteoporosis #4. History of ongoing tobacco use and nicotine addiction #5. History of daily alcohol use Plan: Doing well, taking encouraging deep breathing and coughing, no acute events overnight, she has remained stable, she is wearing her brace, working with physical therapy, she has had no fever or chills, need encouragement with incentive spirometry use, no acute events overnight. Possible discharge to [facility] nursing and rehab today I performed a history & physical examination of the patient and discussed their management with my nurse practitioner, Rosalee Gary. I reviewed the nurse practitioner's note and agree with the documented findings and plan of care. Lung sounds are positive for clear breath sounds. The findings and the impression was discussed with the patient. I attest to the documentation by the nurse practitioner. Time with Patient: Less than 30
[2020-08-17 13:54] VITALS: PULSE 82; RESP 19
--- NOTE | 2020-08-17 14:01 | P.DS ---
Providers Date of admission: 08/12/20 12:33 Expected date of discharge: 08/17/20 Attending physician: Aileen Palumbo MD Consults: 08/12/20 16:00 Consult Physician Stat Consulting Provider: Wayne Monroy Consult Reason/Comments: Fracture Do you want consulting provider notified?: Yes 08/12/20 18:18 Consult Physician Stat Consulting Provider: Harris Howe Consult Reason/Comments: CLL follows Dr. Frey Do you want consulting provider notified?: Yes 08/14/20 15:25 Consult Physician Routine Consulting Provider: Michelle Nunes Consult Reason/Comments: ICU management post op lumbar burst fracture fixation Do you want consulting provider notified?: Yes Primary care physician: Becca Ortiz Hospital Course: This is a 74-year-old female with past medical history noted below who presented to the emergency room with worsening hip pain. Patient had a fall at home 3 weeks prior to her presentation. She was evaluated in the ER and admitted to the hospital for further management of her medical problems noted below. 1. L4 compression fracture status post partial L4 corpectomy, L3 to L5 decompression laminectomy, and ORIF of L4 burst fracture. Continue with back brace. Follow-up with Dr. Sena as directed in 2 weeks 2. Inferior pubic ramus fracture with a minimally displaced fracture through the junction of the anterior acetabulum and superior pubic ramus. Weightbearing as directed by orthopedic 3. CLL: Baseline WBC count around 100 K. Currently trending down. Most likely reactive and secondary to steroid use. Seen and evaluated by hematology. No intervention at this time. Hemoglobin and platelet count stable. 4. Hypochloremic hyponatremia, improved with IV fluids. Hyponatremia is probably chronic secondary to chronic beer drinking. 5. Alcohol abuse: Counseled to quit. 6. Hyperglycemia, steroid induced. No underlying diabetes. See 6.0. 7. Physical debility, seen and evaluated by PT/OT 8. Urinary retention, status post failed voiding trial on 08/16. Continue indwelling Wiseman catheter for the next 5 days and the attempt voiding trial on 08/22 Patient will be discharged to [facility] [place] in a stable condition. For further details about this hospitalization please refer to the electronic chart. Patient Condition at Discharge: Stable Plan - Discharge Summary Discharge Rx Participant: No New Discharge Prescriptions: New polyethylene glycoL 3350 [Miralax] 17 gm PO DAILY powd.pack Gabapentin [Neurontin] 300 mg PO TID #9 cap HYDROcodone/APAP 5-325MG [[place] 5-325] 1 each PO Q4HR PRN #12 tab PRN Reason: Mild Pain methocarbamoL [Robaxin] 750 mg PO TID PRN #9 tab PRN Reason: Pain Continue Ubidecarenone [Co Q-10] 100 mg PO DAILY Turmeric Root Extract [Turmeric] 500 mg PO DAILY Calcium/Magnesium/Zinc [Mwssjvk-Eatnddafv-Gejo Tablet] 1 tab PO DAILY Vitamin B Complex 1 cap PO DAILY Cholecalciferol [Vitamin D3 (25 Mcg = 1000 Iu)] 5,000 unit PO DAILY Fluticasone Nasal [place] [Flonase Nasal [place]] 2 spr EA NOSTRIL DAILY PRN PRN Reason: Allergy Symptoms Magnesium Oxide 400 mg PO DAILY Temazepam 22.5 mg PO HS PRN #3 cap PRN Reason: Insomnia ALPRAZolam [Xanax] 0.25 mg PO DAILY PRN #3 tab PRN Reason: Anxiety Discontinued methylPREDNISolone [Medrol Dose Pack] See Taper PO DIRECTED Discharge Medication List Calcium/Magnesium/Zinc [Alanzwa-Xqdknuyfj-Jflu Tablet] 1 tab PO DAILY 08/12/20 [History] Cholecalciferol [Vitamin D3 (25 Mcg = 1000 Iu)] 5,000 unit PO DAILY 08/12/20 [History] Fluticasone Nasal [place] [Flonase Nasal [place]] 2 spr EA NOSTRIL DAILY PRN 08/12/20 [History] Magnesium Oxide 400 mg PO DAILY 08/12/20 [History] Turmeric Root Extract [Turmeric] 500 mg PO DAILY 08/12/20 [History] Ubidecarenone [Co Q-10] 100 mg PO DAILY 08/12/20 [History] Vitamin B Complex 1 cap PO DAILY 08/12/20 [History] ALPRAZolam [Xanax] 0.25 mg PO DAILY PRN #3 tab 08/17/20 [Rx] Gabapentin [Neurontin] 300 mg PO TID #9 cap 08/17/20 [Rx] HYDROcodone/APAP 5-325MG [[place] 5-325] 1 each PO Q4HR PRN #12 tab 08/17/20 [Rx] Temazepam 22.5 mg PO HS PRN #3 cap 08/17/20 [Rx] methocarbamoL [Robaxin] 750 mg PO TID PRN #9 tab 08/17/20 [Rx] polyethylene glycoL 3350 [Miralax] 17 gm PO DAILY powd.pack 08/17/20 [Rx] Follow up Appointment(s)/Referral(s): Robby Sena DO [Doctor of Osteopathic Medicine] - 2 Weeks Becca Ortiz MD [Primary Care Provider] - 1-2 days Sandra Mendieta [NON-STAFF] - 1 Week Activity/Diet/Wound Care/Special Instructions: Spine Discharge and Recovery Instructions Date of Surgery: 08/14/2020 Diagnosis: L4 burst fracture with lower extremity weakness Procedure: Open reduction and internal fixation of L4 burst fracture, L2 to pelvis posterior stabilized fusion, L3 to 5 decompressive laminectomy, partial L4 corpectomy Medications: See medication list. Take as directed. All medication refills should be obtained through your primary care doctor or your clinic spine surgeon. Please discuss prescription refills at your follow up appointment. Do not call the hospital for medication refills. Dressing: Leave your dressing in place for a total of 5 days post operatively. Then you may remove your dressing and leave open to air. Keep the area clean and if not able to keep area clean, then cover with sterile gauze and tape. Showering: You may shower 3 days after your procedure allowing soap and water to run over incision. Do not scrub. Do not soak. Blot dry. Follow up: Please confirm a follow up appointment with your surgeon 3 weeks post operatively. Please make an appointment to follow up with your PCP in 1-2 weeks after surgery for evaluation 3 phase, 3-week plan POST OP WEEKS 1-3 1. Lifting/carrying/pushing/pulling limited to less than 5 pounds. 2. Do not sit for longer than 15 minutes at one time. Get up and walk around. Prolonged sitting is NOT advised. If you lay down, see if you can tolerate laying down on you front (belly side) 3. Walk for periods of 15 minutes = 1 mile but no longer; do it multiple times times each day. 4.Ice your low back after activity. POST OP WEEKS 3-6 1. Lifting limited to less than 20 pounds. 2. Do not sit for longer than 30 minutes at a time. Frequently change positions. Use a sit-to stand workstation or take frequent breaks from sitting if you have returned to work. 3. Walk for 30 minutes each day. If possible, do these three or more times a day POST OP WEEKS 6+ At your 6-week appointment we will give you a physical therapy referral to focus on a core stabilization and strengthening program. You should also work on leg & buttock strengthening, hamstring & quadriceps stretching, and continue a low impact aerobic activity program such as swimming, walking, or riding a stationary bicycle. During the initial 6 weeks after your surgery, you are at the highest risk of re-injuring your spine. You should generally avoid BLTs (bending, lifting and twisting combination motions) and follow the above guidelines to reduce the chance of reinjury. You can anticipate post op appointments in our office at approximately 3 weeks and 6 weeks after your surgery. INCISION CARE: If your incision is not draining you do NOT need to cover it with a dressing. Keep your incision clean, dry and intact. In most cases, we apply skin glue, paulette or sutures to the incision at the time of surgery. This will be like a crust or have the appearance of a scab and will fall off in time on its own. The stitches or paulette need to be removed at 3 weeks post op appointment. You may begin to shower 3 days after surgery (this allows the glue to deviln well). However, please avoid scrubbing the incision site or peeling off any of the skin glue. This will ensure optimal healing of your incision. Also, during this time avoid soaking the incision area in water - this includes swimming pools, hot tubs or baths. No ointments, lotions or oils on the incision until your surgeon allows. Leave paulette, sutures or glue in place. Neurological dysfunction that comes on suddenly can also be a sign of a stroke. Below some common symptoms of a stroke are listed: B - balance difficulty such as sudden onset walking or leaning to one side - NEW E - eye problem such as sudden double vision or trouble seeing on one side - NEW F - Facial weakness or numbness on one side - NEW A - Arm or leg weakness or numbness on one side - NEW S - Slurred speech or difficulty with word finding - NEW T - Time is BRAIN! Call 911 as soon as you recognize these symptoms Diet: Consume a regular diet rich in vegetables and lean protein such as chicken or fish. You should consume in a ratio of approximately 20% fats|40% carbohydrates|40%protein. Vegetables, sweet potatoes, brown rice or quinoa are examples of good carbohydrates. Chips, white bread, cookies and sweets/sugar are examples of bad carbohydrates. Limit your bad carbs, go wild with good carbs. "Life's Simple 7" Guidelines as per [place] [employer] These will help you reclaim your life after surgery and picking machine operator helper in your recovery, keeping in mind your restrictions. (1) Get Active. Physical activity can help people lose weight, control high blood pressure and cholesterol, feel emotionally better, and sleep better. (2) Control Cholesterol. Avoid a diet high in saturated fat, trans fat, & cholesterol. Limit whole milk & cream, ice cream, butter, egg yolks, processed meats (like sausage and hot dogs), and fatty meats. Choose healthy foods that are low in saturated fat, trans fat and cholesterol which include: Fruits and vegetables, fiber rich grain products (like whole grain pasta and brown rice), lean meat such as chicken, fish, nuts, seeds, and legumes. (3) Eat Better. Eat small portions. Shop at the grocery with a list and do not stray from it. Tips for a healthy diet include: Limit sodium intake to less than 1500mg daily, avoid prepackaged, processed, and fast foods, choose a diet rich in fruits, vegetables, and whole grain, high fiber foods, and limit saturated & cholesterol in your diet. (4) Manage Blood Pressure. If you have high blood pressure, you should have a cuff at home so that you can check your blood pressure regularly. Be sure you have a good cuff. An arm one is generally better than a wrist one. Bring the cuff to a doctor's appointment to validate that the measurements that your cuff are taking are accurate. Take your blood pressure twice daily when you are sitting down and relaxing. Record the numbers in a log and bring this log with you to your doctors' appointments. (5) Lose Weight if your BMI is above 25. A healthy BMI is between 19-25. To calculate Your BMI, you may use a Standard BMI Calculator on the NIH BMI website: <www.nhlbi.nih.gov/guidelines/obesity/BMI/bmicalc.htm>. Weigh oneself daily. If you are overweight, set a goal to lose weight. A pound a week loss if needed is a good target. (6) Reduce Blood Sugar. Limit foods and liquids with "added sugars." (Added sugars include sucrose, fructose, glucose, maltose, dextrose, high fructose corn syrup, corn syrup, concentrated fruit juice and honey). (7) Stop Smoking. If you smoke, quitting smoking is one of the best things that you can do for your health. Smoking increases your risk of heart attack, stroke, and peripheral vascular disease, which is a build-up of plaque in your arteries. Please discard all the cigarettes and lighters in your house. Have a plan for what you will do when you have the urge to smoke. Direct and second- hand smoke shortens your life as well as the lives of your family, friends and others around you. For your health and the health of those around you, please consider quitting! Proper Bending Body Mechanics: Maintain a wide stance with one foot slightly in front of the other. Keep your back straight. Bend utilizing the strength in your hips and knees. Do not bend at the waist. Maintain the lifted object at your waist-level close to your body. Avoid lifting weight that causes immediately pain or pain anywhere in the body afterwards. Smoking/Nicotine If there was ever one thing that you could do to increase your overall health, decrease your risk of cardiovascular problems by about 39% the second you make the choice, it is to STOP SMOKING. Your body's most instant gratification is the second you stop smoking. We have all heard the studies, read the articles but it is true, smoking is extremely bad for your overall health, and moreover it is detrimental to your bone health. Nicotine, IN ANY FORM, kills bone cells, prevents your body from healing fractures, and significantly prolongs healing after surgery. In spine surgery specifically, it increases your risk of not healing your bones to create a fusion and increases your risk of having a revision surgery due to this up to 60%. I know it is hard. I know it feels impossible. But there are ways. Take control of your life. We are here to help you through it. And when you are ready, ask us and we can direct you to help if you desire. Use the START Plan to Quit Smoking (please visit the [employer]org website listed below for more information): S = Set a quit date. Choose a date within the next 2 weeks, so you have enough time to prepare witho ut losing your motivation to quit. If you mainly smoke at work, quit on the weekend, so you have a few days to adjust to the change. T = Tell family, friends, and co-workers that you plan to quit. Let your friends and family in on your plan to quit smoking and tell them you need their support and encouragement to stop. Look for a quit marlena who wants to stop smoking as well. You can help each other get through the rough times. A = Anticipate and plan for the challenges you'll face while quitting. Most people who begin smoking again do so within the first 3 months. You can help yourself make it through by preparing ahead for common challenges, such as nicotine withdrawal and cigarette cravings. R = Remove cigarettes and other tobacco products from your home, car, and work. Throw away all your cigarettes (no emergency pack!), lighters, ashtrays, and matches. Wash your clothes and freshen up anything that smells like smoke. Shampoo your car, clean your drapes and carpet, and steam your furniture. T = Talk to your doctor about getting help to quit. Your doctor can prescribe medication to help with withdrawal and suggest other alternatives. If you can't see a doctor, you can get many products over the counter at your local pharmacy or grocery store, including the nicotine patch, nicotine lozenges, and nicotine gum. Resources for Quitting Smoking: <https://www.[place].gov/documents/[facility]/Quit_Tobacco_Resources_for_patients_ 313480_7.pdf> Supplementation: Take recommended dosages of Vitamin D and Calcium to help fortify your bones and help them to heal. See your health maintenance packet for dosages and recommended levels. DVT/VTE prophylaxis: You will be given compression stockings from the hospital. Wear these daily for the first two weeks after surgery. You may take them off at night. You may be prescribed a medication to help thin your blood. Take this as directed. If you are not prescribed this medication, early and frequent ambulation has been shown to be the best prophylaxis to deep vein thrombosis and sequelae related to this event. Discharge Disposition: TRANSFER TO SNF/ECF
--- NOTE | 2020-08-18 09:02 | CDI ---
Documentation Clarification Form Date: 08/18/20 From: Debby Torres Phone: If you have a question about this query, please contact Maria R Capellan, Cold Molding Press Operator at [phone] between 8am and 5pm. Admit Date: 08/12/20 Discharge Date:08/17/20 Patient Name: Rosalba Landa Visit Number: [id number] ATTENTION: The Clinical Documentation Specialists (CDI) and [facility] Coding Staff appreciate your assistance in clarifying documentation. Please respond to the clarification below the line at the bottom and electronically sign. The CDI & [facility] Coding staff will review the response and follow-up if needed. Please note: Queries are made part of the Legal Health Record. If you have any questions, please contact the author of this message via ITS. Dear Dr. Palumbo Somewhat malnourished appearance is documented in Dr. Sena's 08/12 progress note. History/Risk Factors: CLL, depression Clinical Indicators: Underweight. Documentation states no edema, muscle strength and tone normal. Labs: Protein - 5.6 and 4.8, Albumin - 3.5 and 2.8 Current BMI: 18.2 Insufficient energy intake: Contract Processor documents good nutrition intake Weight Loss: Underweight per dietary notes Loss of subcutaneous fat: None documented Loss of muscle mass: None documented Fluid accumulation: None documented Decreased hand data entry machine operator strength: Normal strength and tone Treatment: Dietary Consult: Underweight, meeting 75% of estimated nutritional needs Supplements: Ensure Enlive TID Lab monitoring: Repeat protein and albumin In your professional opinion, can you please clarify if these findings signify one of the following conditions? Malnutrition Ruled Out Mild Protein-Calorie Malnutrition Moderate Protein-Calorie Malnutrition Severe Protein-Calorie Malnutrition Malnutrition, unspecified Malnutrition following GI surgery Other condition, please specify Unable to determine Mild Protein-Calorie Malnutrition MTDD
--- NOTE | 2020-08-22 14:15 | CDI ---
Documentation Clarification Form Date: 08/22/20 From: Debby Torres Phone: If you have a question about this query, please contact Maria R Capellan, Mental Retardation Aide at [phone] between 8am and 5pm. Admit Date: 08/12/20 Discharge Date:08/17/20 Patient Name: Rosalba Landa Visit Number: [id number] ATTENTION: The Clinical Documentation Specialists (CDI) and [facility] Coding Staff appreciate your assistance in clarifying documentation. Please respond to the clarification below the line at the bottom and electronically sign. The CDI & [facility] Coding staff will review the response and follow-up if needed. Please note: Queries are made part of the Legal Health Record. If you have any questions, please contact the author of this message via ITS. Dear Dr. Palumbo Patient has been diagnosed with a burst fracture of the L4 vertebra and inferior pubic ramus fracture with a minimally dipslaced fracture through the junction of the anterior acetabulum and superior pubic ramus. History/Risk Factors: CLL, osteoporosis, fall at home 3 weeks prior to admission Clinical Indications: Back pain, weakness Path Report: Posterior lamina L5 - Skeletal muscle and adipose tissue with a small lymphocytic infiltrate consistent with CLL. L4 vertebral body - bone with partially necrotic cellular infiltrate and a small lymphocytic infiltrate consistent with CLL. X-Ray Results: Lumbar spine - 1. Acute compression deformity of L4 with 60% loss of vertebral body height. Posterior wall displacement of the superior posterior wall into the spinal canal by 0.8 cm. AP spinal canal stenosis is not present. 2. Disc bulging present L2-3, L3-4 and mildly at L4-5 with anterior thecal sac flattening. MRI: Spine - Burst fracture of the L4 vertebral body. This could be a traumatic fracture. I do not see definite pedicle involvement to suggest metastatic disease. There is moderate spinal stenosis due to posterior fragment extension. Pathologic fracture of L4 cannot be entirely excluded. Treatment: ORIF of L4 burst fracture. L2 pelvis posterior stabilized fusion. L3 - 5 decompressive laminectomy. L4 partial corpectomy. In your professional opinion, please specify the following: Etiology of fractures of the L4 vertebra, inferior pubic ramus and anterior acetabulum and superior pubic ramus junction: Traumatic Pathological (specify cause): Neoplastic disease Osteoporosis Other (please specify): Unable to determine related to trauma MTDD
== END 2020-08-17 18:38 | DRG 460 ==
LOC: EC 09:25 → 4SSUR 12:33 → 2SICU 08-14 15:50 → 6NMEDSUR 08-15 12:30
PROVIDERS: ADMIT Family Medicine; ATTEND Family Medicine
PROC: 0QS004Z Reposition Lumbar Vertebra with Internal Fixation Device, Open Approach (ICD-10-PCS; principal; 2020-08-14 08:00)
PROC: 01NB0ZZ Release Lumbar Nerve, Open Approach (ICD-10-PCS; principal; 2020-08-14 08:00)
PROC: 0SG0071 Fusion of Lumbar Vertebral Joint with Autologous Tissue Substitute, Posterior Approach, Posterior Column, Open Approach (ICD-10-PCS; principal; 2020-08-14 08:00)
DX: S32.042A Unstable burst fracture of fourth lumbar vertebra, initial encounter for closed fracture (principal); S32.599A Other specified fracture of unspecified pubis, initial encounter for closed fracture; C91.10 Chronic lymphocytic leukemia of B-cell type not having achieved remission; E87.1 Hypo-osmolality and hyponatremia; E44.1 Mild protein-calorie malnutrition; E87.8 Other disorders of electrolyte and fluid balance, not elsewhere classified; E86.0 Dehydration; F10.10 Alcohol abuse, uncomplicated; F17.210 Nicotine dependence, cigarettes, uncomplicated; F32.9 Major depressive disorder, single episode, unspecified; F41.9 Anxiety disorder, unspecified; M41.9 Scoliosis, unspecified; M48.061 Spinal stenosis, lumbar region without neurogenic claudication; M81.0 Age-related osteoporosis without current pathological fracture; R29.6 Repeated falls; T38.0X5A Adverse effect of glucocorticoids and synthetic analogues, initial encounter; G89.29 Other chronic pain; K57.90 Diverticulosis of intestine, part unspecified, without perforation or abscess without bleeding; M47.819 Spondylosis without myelopathy or radiculopathy, site unspecified; R33.9 Retention of urine, unspecified; R05 Cough; W01.0XXA Fall on same level from slipping, tripping and stumbling without subsequent striking against object, initial encounter; Y92.009 Unspecified place in unspecified non-institutional (private) residence as the place of occurrence of the external cause; Z20.828 Contact with and (suspected) exposure to other viral communicable diseases; R73.9 Hyperglycemia, unspecified; M19.042 Primary osteoarthritis, left hand; M19.041 Primary osteoarthritis, right hand; R53.81 Other malaise; Z79.899 Other long term (current) drug therapy; Z90.89 Acquired absence of other organs; Z71.41 Alcohol abuse counseling and surveillance of alcoholic; Z98.42 Cataract extraction status, left eye; Z98.41 Cataract extraction status, right eye; Z82.49 Family history of ischemic heart disease and other diseases of the circulatory system; Z82.0 Family history of epilepsy and other diseases of the nervous system
CPT/HCPCS: 36415; 72100; 72110; 72131; 72157; 72158; 80048; 80053; 80076; 80202; 82784; 83036; 83615; 83735; 84100; 84484; 84550; 85025; 85610; 85730; 86850; 86891; 86900; 86901; 88304; 88307; 88311; 88341; 88342; 93005; 94640; 96374; 99285

== ENCOUNTER → 2020-12-21 | Outpatient (CLI) | payer MEDICARE ==
--- NOTE | 2020-12-23 14:00 | MM ---
Reason for exam: screening (asymptomatic). Last mammogram was performed 1 year and 1 month ago. History: Patient is postmenopausal, has history of other cancer at age 68, and is nulliparous. Family history of breast cancer in cousin. Took hormonal contraceptives for 5 years beginning at age 22. Physical Findings: A clinical breast exam by your physician is recommended on an annual basis and results should be correlated with mammographic findings. MG 3D Screening Mammo W/Cad Bilateral CC and MLO view(s) were taken. Prior study comparison: November 16, 2019, bilateral MG 3d screening mammo w/cad. April 06, 2019, left breast MG 3d diag mammo w/cad LT. The breast tissue is extremely dense which could obscure a lesion on mammography. There is no discrete abnormality. No significant changes when compared with prior studies. ASSESSMENT: Negative, BI-RAD 1 RECOMMENDATION: Routine screening mammogram of both breasts in 1 year.
== END | disposition home or self-care (01) ==
LOC: RADMAMWWP 10:54
PROVIDERS: ATTEND Family Medicine
DX: Z12.31 Encounter for screening mammogram for malignant neoplasm of breast (principal)
CPT/HCPCS: 77063; 77067

== ENCOUNTER → 2021-02-20 | Outpatient (CLI) | payer MEDICARE ==
--- NOTE | 2021-02-21 06:21 | US ---
EXAMINATION TYPE: US bladder DATE OF EXAM: 02/20/2021 COMPARISON: CT pelvis May 01, 2011 CLINICAL HISTORY: Recent UTI w Distended Abd, N39.0, R19.07. EXAM MEASUREMENTS: Post Void Residual Volume: 5.6 mL Color Doppler performed to assess ureteral jets. Bilateral Jets seen: Yes Normal Post Void Residual (less than 50ml): Yes Bladder not greatly distended with lobulated contour. Bladder wall appears to have areas of abnormal wall thickening. No suspicious intraluminal mass. Bilateral distal ureter jets are seen. Bladder is n early completely emptied on voiding. IMPRESSION: Lobulated contour to the bladder with abnormal wall thickening could reflect product of chronic outlet obstruction, product of recent urinary tract infection or bladder infection also could account for finding.
== END | disposition home or self-care (01) ==
LOC: RADUSWWP 16:01
PROVIDERS: ATTEND Orthopaedic Surgery
DX: N39.0 Urinary tract infection, site not specified (principal)
CPT/HCPCS: 76857

== ENCOUNTER → 2022-02-14 | Outpatient (CLI) | payer MEDICARE ==
--- NOTE | 2022-02-14 11:59 | MM ---
Reason for exam: additional evaluation requested from abnormal screening. Last mammogram was performed 1 month ago. History: Patient is postmenopausal, has history of other cancer at age 68, and is nulliparous. Family history of breast cancer in cousin. Took hormonal contraceptives for 5 years beginning at age 22. Physical Findings: A clinical breast exam by your physician is recommended on an annual basis and results should be correlated with mammographic findings. MG 3D Work Up W/Cad LT Spot compression CC, spot compression MLO, and LM view(s) were taken of the left breast. Prior study comparison: January 26, 2022, bilateral MG 3d screening mammo w/cad. December 21, 2020, bilateral MG 3d screening mammo w/cad. Probably benign calcifications far upper outer right breast. 6 month follow up. Results were given to the patient verbally at the time of the exam. ASSESSMENT: Probably benign, BI-RAD 3 RECOMMENDATION: Follow-up diagnostic mammogram of the left breast in 6 months. (with magnification views)
== END | disposition home or self-care (01) ==
LOC: RADMAMWWP 10:53
PROVIDERS: ATTEND Family Medicine
DX: R92.8 Other abnormal and inconclusive findings on diagnostic imaging of breast (principal); Z78.0 Asymptomatic menopausal state; Z80.3 Family history of malignant neoplasm of breast; Z85.3 Personal history of malignant neoplasm of breast
CPT/HCPCS: 77065; G0279; 77061

== ENCOUNTER → 2022-08-22 | Outpatient (CLI) | payer MEDICARE ==
--- NOTE | 2022-08-22 11:26 | MM ---
Reason for Exam: Follow-up at short interval from prior study. Last screening mammogram was performed 6 month(s) ago. Patient History: Menarche at age 13. Patient has no children. Postmenopausal. Other cancer, age 68. Hormonal Contraceptives for 5 years from age 22 until age 27. Maternal cousin had breast cancer. Risk Values: Taylor 5 year model risk: 2.0%. NCI Lifetime model risk: 4.2%. Tissue Density: Left: The breast tissue is heterogeneously dense. This may lower the sensitivity of mammography. Findings: Analyzed By CAD. Pattern appears stable. The calcifications in the upper outer aspect of the left breast are less well-visualized on the current examination. No increasing cluster of microcalcifications is identified. The left breast otherwise appears stable from comparison. Overall Assessment: Probably benign, BI-RAD 3 Management: Diagnostic Mammogram of both breasts in 6 months. A clinical breast exam by your physician is recommended on an annual basis and results should be correlated with mammographic findings. This exam should not preclude additional follow-up of suspicious palpable abnormalities. Results were given to the patient verbally at the time of exam. Electronically signed and approved by: Robert Lynch D.O. Radiologis
== END | disposition home or self-care (01) ==
LOC: RADMAMWWP 10:57
PROVIDERS: ATTEND Family Medicine
DX: R92.8 Other abnormal and inconclusive findings on diagnostic imaging of breast (principal)
CPT/HCPCS: 77065; G0279; 77061

== ENCOUNTER → 2023-02-20 | Outpatient (CLI) | payer MEDICARE ==
--- NOTE | 2023-02-20 12:59 | MM ---
Reason for Exam: Follow-up at short interval from prior study. Last screening mammogram was performed 12 month(s) ago. Patient History: Menarche at age 13. Patient has no children. Postmenopausal. Other cancer, age 68. Hormonal Contraceptives for 5 years from age 22 until age 27. Maternal cousin had breast cancer. Risk Values: Taylor 5 year model risk: 2.0%. NCI Lifetime model risk: 4.0%. Prior Study Comparison: 05/17/1994 Screening Mammogram, Unknown. 09/16/2018 Bilateral Screening Mammogram, [facility]. 10/08/2018 Left Diagnostic Mammogram, [facility]. 04/06/2019 Left Diagnostic Mammogram, [facility]. 11/16/2019 Bilateral Screening Mammogram, [facility]. 12/21/2020 Bilateral Screening Mammogram, [facility]. 01/26/2022 Bilateral Screening Mammogram, [facility]. 02/14/2022 Left Diagnostic Mammogram, [facility]. 08/22/2022 Left MG 3D diag mammo w/cad LT, [facility]. Tissue Density: There are scattered fibroglandular densities. Findings: Analyzed By CAD. Calcifications appear stable in the left breast lateral aspect on CC view and above the nipple on lateral view. Right breast: No new suspicious masses, calcifications or distortions. Overall Assessment: Probably benign, BI-RAD 3 Management: Diagnostic Mammogram of the left breast in 6 months. A clinical breast exam by your physician is recommended on an annual basis and results should be correlated with mammographic findings. This exam should not preclude additional follow-up of suspicious palpable abnormalities. Results were given to the patient verbally at the time of exam. Electronically signed and approved by: William Pino DO
== END | disposition home or self-care (01) ==
LOC: RADMAMWWP 10:53
PROVIDERS: ATTEND Family Medicine
DX: R92.8 Other abnormal and inconclusive findings on diagnostic imaging of breast (principal); Z78.0 Asymptomatic menopausal state; Z80.3 Family history of malignant neoplasm of breast
CPT/HCPCS: 77066; G0279; 77062

== ENCOUNTER → 2023-08-29 | Outpatient (CLI) | payer MEDICARE ==
--- NOTE | 2023-08-29 11:41 | MM ---
Reason for Exam: Follow-up at short interval from prior study. Last screening mammogram was performed 7 month(s) ago. Patient History: Menarche at age 13. Patient has no children. Postmenopausal. Other cancer, age 68. Hormonal Contraceptives for 5 years from age 22 until age 27. Maternal cousin had breast cancer. Risk Values: Taylor 5 year model risk: 2.0%. NCI Lifetime model risk: 4.0%. Tissue Density: Left: The breast tissue is heterogeneously dense. This may lower the sensitivity of mammography. Findings: Analyzed By CAD. 2 groups of calcifications the first in the left breast lateral aspect on cc view posterior depth appears stable given differences in technique. The other left breast MLO view posteriorly heart again felt to be stable given differences in technique. These lateral ossifications on LCC may be the same group on the MLO view. No new suspicious masses, calcifications or distortions. Overall Assessment: Benign, BI-RAD 2 Management: Screening Mammogram of both breasts in 1 year. Results were given to the patient verbally at the time of exam. Patient should continue monthly self-breast exams. A clinical breast exam by your physician is recommended on an annual basis. This exam should not preclude additional follow-up of suspicious palpable abnormalities. Note on Taylor scores and lifetime risk: 1. A Taylor score greater than 3% is considered moderate risk. If this is the case, consider specialist referral to assess eligibility for a risk reducing agent. 2. If overall lifetime risk for the development of breast cancer is 20% or higher, the patient may qualify for future screening with alternating mammogram and breast MRI. Electronically signed and approved by: William Pino DO
== END | disposition home or self-care (01) ==
LOC: RADMAMWWP 10:58
PROVIDERS: ATTEND Family Medicine
DX: R92.332 Mammographic heterogeneous density, left breast (principal); Z78.0 Asymptomatic menopausal state; Z80.3 Family history of malignant neoplasm of breast
CPT/HCPCS: 77065; G0279; 77061